=== PATIENT | female | born 1940 | race Caucasian/White ===

== ENCOUNTER 2017-01-17 18:29 | Observation (INO) | payer OTHER, MEDICAID ==
--- NOTE | 2017-01-17 22:01 | DR.GENAD ---
HPI - PCP Primary Care Physician: lupe Aranda HPI Comment HPI Comment: PATIENT DENIES DIARRHEA OR CONSTIPATION. DENIES FEVER OR DYSURIA. PAIN GETTING WORSE. CONCERN IF GB PAIN. - Complaint/Symptoms Chief Complaint Doctors Comments: ABDOMINAL PAIN, NAUSEA AND VOMITING TIMES 2 WEEKS. Chief Complaint:: pt c/o abd pain and vomiting for the last 2 weeks. pt states" i think its my gallbladder" - Nurses notes reviewed Nurses Notes Review: Yes - Source History Provided: Patient - Mode of Arrival Mode of Arrival: Ambulatory - Timing Onset of Chief Complaint: 01/04/17 Came on: Suddenly - Duration Duration: Constant Duration: Hours - Severity Severity: Moderate PMH - PMH Past Medical History: No Past Surgical History: Yes Surgical History: - Family History History of Family Medical Conditions: Yes Family Medical History: Cancer - Social History Does any household member use tobacco: No Alcohol Use: None Do you use any recreational Drugs:: No Lives With: Family Lives Where: Home - infectious screening In the last 2 months have you had wt loss of >10#?: NO Have you had fever, night sweats or hemotysis?: No Have you traveled outside the country in the last 6 months?: No Isolation: Standard ROS - Review of Systems Constitutional: No Symptoms Reported. negative: Chills, Fever, Weakness, Fatigue, Loss of Appetite Eyes: No Symptoms Reported. negative: Eye Pain, Discharge ENTM: No Symptoms Reported. negative: Ear Pain, Nose Discharge, Nose Congestion , Throat Pain Respiratoy: No Symptoms Reported. negative: Productive Cough, Non-Productive Cough, Short of Breath, Wheezing, Hemoptysis Cardiovascular: negative: Chest Pain, Edema, Palpitations Gastrointestinal/Abdominal: Abdominal Pain, Nausea. negative: Constipation, Diarrhea, Vomiting Genitourinary: No Symptoms Reported. negative: Dysuria, Frequency, Hematuria Neurological: No Symptoms Reported. negative: Headache, Weakness, Dizziness Musculoskeletal: No Symptoms Reported Integumentary: No Symptoms Reported Hematologic/Lymphatic: No Symptoms Reported Endocrine: No Symptoms Reported All Other Systems: Reviewed and Negative PE - Vital Signs Vitals: Temperature 98.3 F Pulse Rate 82 Respiratory Rate 18 Blood Pressure [Left Arm] 149/68 Blood Pressure 157/77 O2 Sat by Pulse Oximetry 98 - General Limitations: No Limitations General Appearance: Alert - Head Head Exam: Normal Inspection - Eyes Eye exam: Normal Appearance - ENT ENT Exam: Normal External Ear Exam External Ear Exam: Normal External Inspection TM/Canal Exam: Bilateral Normal Nose Exam: Normal Nose Exam Mouth Exam: Normal Inspection Throat Exam: Normal Inspection - Neck Neck Exam: Normal Inspection - Chest Chest Inspection: Symmetric Chest Wall Rise - Respiratory Respiratory Exam: Normal Lung Sounds Bilat Respiratory Exam: Bilateral Clear to Auscultation - Cardiovascular Cardiovascular Exam: Regular Rate, Normal Rhythm, Normal Heart Sounds - Abdominal Exam Abdominal Exam: Normal Bowel Sounds, Soft, Tenderness Abdominal Tenderness: Diffuse, Moderate - Extremities Extremities Exam: Normal Inspection - Back Back Exam: Normal Inspection - Neurologic Neurological Exam: Alert, Oriented X3, CN II-XII Intact, Normal Gait, Reflexes Normal. negative: Motor Sensory Deficit - Psychiatric Psychiatric Exam: Normal Affect, Normal Mood, Anxious - Skin Skin Exam: Normal Color MDM - Additional Information Additional Information Obtained From: Family - Differential Diagnosis Differential Diagnosis: ABDOMINAL PAIN, NAUSEA, CHOLELITHIASIS/CHOLICYSTITIS, BOWEL OBST, DIVERTICI Course - Treatment Treatment: SEE ORDERS - Consultation Consultation Comments: DISCUSS PATIENT WITH DR. THORNTON, HE WILL ADMIT PATIENT. CT REPORT CALL TO DR. SHELTON. HE WILL DISCUSS IT WITH PATIENT. - Education/Counseling Education/Counseling: Patient, Family, Education Educated On: Diagnosis, Needs for Follow Up ROR - Labs Reviewed Laboratory Results Reviewed?: Yes Result Diagrams: 01/18/17 05:20 01/18/17 05:20 Laboratory: WBC 4.9 X10^3/uL (3.6-10.0) 01/17/17 22:09 RBC 4.56 X10^6/uL (3.5-5.4) 01/17/17 22:09 Hgb 12.1 g/dL (12.0-16.0) 01/17/17 22:09 Hct 36.0 % (36.0-47.0) 01/17/17 22:09 MCV 78.8 fL (80.0-100.0) L 01/17/17 22:09 MCH 26.6 pg (27.0-34.0) L 01/17/17 22:09 MCHC 33.7 g/dL (33.0-35.0) 01/17/17 22:09 RDW 14.3 % (11.6-16.5) 01/17/17 22:09 Plt Count 201 X10^3/uL (150.0-450.0) 01/17/17 22:09 MPV 7.6 fL (7.4-11.0) 01/17/17 22:09 Neut % 77.9 % (42.0-75.0) H 01/17/17 22:09 Lymph % 14.0 % (21.0-51.0) L 01/17/17 22:09 [place] % 6.5 % (0.0-13.0) 01/17/17 22:09 Eos % 1.2 % (0.9-2.9) 01/17/17 22:09 Baso % 0.4 % (0.2-1.0) 01/17/17 22:09 Neut # 3.8 x10^3/uL (2.2-4.8) 01/17/17 22:09 Lymph # 0.7 X10^3/uL (1.3-2.9) L 01/17/17 22:09 [place] # 0.3 x10^3/uL (0.3-0.8) 01/17/17 22:09 Eos # 0.1 x10^3/uL (0.0-0.2) 01/17/17 22:09 Baso # 0.0 X10^3/uL (0.0-0.1) 01/17/17 22:09 Absolute Nucleated RBC 0.1 /100WBC 01/17/17 22:09 Sodium 139 mmol/L (136-145) 01/17/17 22:09 Corrected Sodium 140 mmol/L (136-145) 01/17/17 22:09 Potassium 3.3 mmol/L (3.5-5.1) L 01/17/17 22:09 Chloride 105 mmol/L (98-107) 01/17/17 22:09 Carbon Dioxide 27.4 mmol/L (21-32) 01/17/17 22:09 BUN 15 mg/dL (7-18) 01/17/17 22:09 Creatinine 0.82 mg/dL (0.55-1.02) 01/17/17 22:09 Est GFR (MDRD) Af Amer > 60 (>60) 01/17/17 22:09 Est GFR (MDRD) Non-Af > 60 (>60) 01/17/17 22:09 Glucose 148 mg/dL (65-99) H 01/17/17 22:09 Calcium 9.0 mg/dL (8.5-10.1) 01/17/17 22:09 Corrected Calcium TNP 01/17/17 22:09 Total Bilirubin 0.90 mg/dL (0.2-1.0) 01/17/17 22:09 AST 20 Units/L (15-37) 01/17/17 22:09 ALT 28 Units/L (12-78) 01/17/17 22:09 Alkaline Phosphatase 100 Units/L (46-116) 01/17/17 22:09 Total Protein 7.4 g/dL (6.4-8.2) 01/17/17 22:09 Albumin 3.7 g/dL (3.4-5.0) 01/17/17 22:09 Globulin 3.7 g/dL (2.5-4.5) 01/17/17 22:09 Albumin/Globulin Ratio 1.0 Ratio (1.1-2.1) L 01/17/17 22:09 Amylase 13 Units/L (25-115) L 01/17/17 22:09 Lipase 42 Units/L (73-393) L 01/17/17 22:09 Specimen Type Clean catch urine 01/17/17 22:28 Urine Color Dark yellow (YELLOW) 01/17/17 22:28 Urine Appearance Hazy (CLEAR) 01/17/17 22:28 Urine pH 5.0 (5.0 - 8.0) 01/17/17 22:28 Ur Specific Ray 1.025 (1.000-1.030) 01/17/17 22:28 Urine Protein 2+ (NEGATIVE) 01/17/17 22:28 Urine Glucose (UA) Negative (NEGATIVE) 01/17/17 22:28 Urine Ketones Negative (NEGATIVE) 01/17/17 22:28 Urine Occult Blood 3+ (NEGATIVE) 01/17/17 22: Urine Nitrite Negative (NEGATIVE) 01/17/17 22: Urine Bilirubin Negative (NEGATIVE) 01/17/17 22: Urine Urobilinogen 1+ (NORMAL) 01/17/17 22: Ur Leukocyte Esterase 3+ (NEGATIVE) 01/17/17 22:28 Urine RBC 10-12 /HPF (NEGATIVE) 01/17/17 22:28 Urine WBC 16-20 /HPF (NEGATIVE) 01/17/17 22:28 Ur Squamous Epith Cells Few /HPF (NEGATIVE) 01/17/17 22:28 Ur Renal Epithelial Cell Rare /HPF (NEGATIVE) 01/17/17 22:28 Urine Bacteria Trace /HPF (NEGATIVE) 01/17/17 22:28 Hyaline Casts Few /LPF (NEGATIVE) 01/17/17 22:28 Urine Mucus Few /HPF (NEGATIVE) 01/17/17 22:28 Ur Culture Indicated? Yes/culture set up 01/17/17 22:28 - XRAY XRAY Interpreted by: Radiologist XRAY Findings: REPORT OF XRAY DISCUSS WITH PATIENT AND FAMILY. - Diagnosis Discharge Problem: Partial bowel obstruction, Lytic lesion of bone on x-ray, Neoplasm of sigmoid colon - Discharge Plan Disposition: ADMITTED INPATIENT Condition: Stable - Follow ups/Referrals - Instructions
[2017-01-17 22:13] LABS: BASOPHILS % (AUTO) 0.4 % (0.2-1.0); EOSINOPHILS # (AUTO) 0.1 x10^3/uL (0.0-0.2); EOSINOPHILS % (AUTO) 1.2 % (0.9-2.9); HEMOGLOBIN 12.1 g/dL (12.0-16.0); LYMPHOCYTES # (AUTO) 0.7 X10^3/uL (1.3-2.9); MEAN CORPUSCULAR HEMOGLOBIN 26.6 pg (27.0-34.0); MEAN CORPUSCULAR HGB CONC 33.7 g/dL (33.0-35.0); MEAN CORPUSCULAR VOLUME 78.8 fL (80.0-100.0); MEAN PLATELET VOLUME 7.6 fL (7.4-11.0); MONOCYTES # (AUTO) 0.3 x10^3/uL (0.3-0.8); MONOCYTES % (AUTO) 6.5 % (0.0-13.0); NEUTROPHILS # (AUTO) 3.8 x10^3/uL (2.2-4.8); NEUTROPHILS % (AUTO) 77.9 % (42.0-75.0); PLATELET COUNT 201 X10^3/uL (150.0-450.0); RED BLOOD COUNT 4.56 X10^6/uL (3.5-5.4); RED CELL DISTRIBUTION WIDTH 14.3 % (11.6-16.5); WHITE BLOOD COUNT 4.9 X10^3/uL (3.6-10.0)
[2017-01-17 22:31] LABS: ALANINE AMINOTRANSFERASE 28 Units/L (12-78); ALBUMIN 3.7 g/dL (3.4-5.0); ALKALINE PHOSPHATASE 100 Units/L (46-116); AMYLASE 13 Units/L (25-115); ASPARTATE AMINO TRANSFERASE 20 Units/L (15-37); BLOOD UREA NITROGEN 15 mg/dL (7-18); CARBON DIOXIDE 27.4 mmol/L (21-32); CHLORIDE 105 mmol/L (98-107); COR NA(FOR HYPERGLY) 140 mmol/L (136-145); CREATININE 0.82 mg/dL (0.55-1.02); GLUCOSE 148 mg/dL (65-99); LIPASE 42 Units/L (73-393); SODIUM 139 mmol/L (136-145); TOTAL PROTEIN 7.4 g/dL (6.4-8.2); eGFR BLACK RACES > 60 (>60); eGFR NON BLACK RACES > 60 (>60)
[2017-01-17 22:38] LABS: BILIRUBIN,URINE NEGATIVE (NEGATIVE); BLOOD/HEMOGLOBIN,URINE 3+ (NEGATIVE); GLUCOSE, URINE NEGATIVE (NEGATIVE); KETONES,URINE NEGATIVE (NEGATIVE); LEUKOCYTE ESTERASE ,URINE 3+ (NEGATIVE); NITRITES,URINE NEGATIVE (NEGATIVE); PROTEIN,URINE 2+ (NEGATIVE); UROBILINOGEN,URINE 1+ (NORMAL)
[2017-01-17 22:57] LABS: COLOR,URINE DARK YELLOW (YELLOW)
[2017-01-17 22:58] LABS: APPEARANCE,URINE HAZY (CLEAR); BACTERIA,URINE TRACE /HPF (NEGATIVE); HYALINE CASTS, URINE FEW /LPF (NEGATIVE); MUCUS,URINE FEW /HPF (NEGATIVE); RENAL EPITHELIAL CELLS,URINE RARE /HPF (NEGATIVE); SQUAMOUS EPITHELIAL CELL,UR FEW /HPF (NEGATIVE)
--- NOTE | 2017-01-18 00:42 | RAD ---
EXAM: Abdomen Series with Chest X-Ray INDICATION: Abdominal pain COMPARISION: No priors TECHNIQUE: AP chest, flat and upright abdomen, 3 views FINDINGS: Chronic changes are seen throughout both lungs consistent with COPD. The cardiac silhouette and medi astinum appear unremarkable. Air-fluid levels are seen throughout mildly distended small bowel loops . The large bowel is nondilated. The regional skeleton is intact. No abnormal mass or calcification. IMPRESSION: Dilated loops of small bowel are seen throughout the abdomen and there are air-fluid levels present consistent with a small bowel obstruction. Reported By:
[2017-01-18] MEDS ORDERED: NS 1000 ML 1,000 ML IV SCH (01:00)
[2017-01-18] MEDS ORDERED: NS 1000 ML 1,000 ML ONE (01:11)
[2017-01-18] MEDS ORDERED: NS 100 ML IV 100 ML IV ONE (03:39)
--- NOTE | 2017-01-18 04:18 | CT ---
EXAM: CT ABDOMEN AND PELVIS WITH CONTRAST INDICATION: Abdominal pain COMPARISION: No priors available for comparison TECHNIQUE: Axial CT examination of the abdomen and pelvis was performed with intravenous contrast. The patient received intravenous contrast without adverse reaction. Coronal and sagittal reconstructions were c reated using the axial data. FINDINGS: The lung bases are clear. The liver and both kidneys contain cysts. The spleen, pancreas, adrenal gl ands, and gallbladder are normal. There is no evidence of biliary ductal dilatation. The aorta and i nferior vena cava are normal in caliber. The bowel loops are nonobstructed. No abnormal mass, lymphadenopathy, or fluid collection. Urinary bladder is normal. There is focal wall thickening which appears concentric involving the si gmoid colon in the left hemipelvis. The wall thickening is 2.6 cm in length. Proximal to the wall th ickening is dilatation of the splenic flexure and descending colon. The uterus and adnexa appear unr emarkable. T there is a poorly defined lucent lesion in the superior aspect of the L3 vertebral body which quique ures approximately 2 cm in diameter. IMPRESSION: There is a 2.6 cm long region of concentric wall thickening involving the sigmoid colon with proxima l large bowel dilatation which could represent a partial obstruction. A malignant lesion of the sigm oid colon is suspected and further evaluation is recommended. The lucent lesion in the L3 vertebral body could represent a malignant metastatic disease or primary bone tumor. MRI of the lumbar spine c ould be obtained for further evaluation. A whole-body bone scan may also be helpful in evaluating th e entire skeleton. Reported By:
[2017-01-18] MEDS ORDERED: ZOFRAN INJ 4 MG VIAL IVP PRN (04:48)
[2017-01-18] MEDS ORDERED: MORPHINE SULFATE INJ 2 MG IVP PRN (04:50)
[2017-01-18] MEDS ORDERED: ROCEPHIN 1 GM IV PREMIX * OUT OF STOCK 50 ML IV ONE (05:06)
[2017-01-18 05:46] VITALS: BMI 27.1
[2017-01-18] MEDS: NS 1000 ML 1,000 ML IV SCH ×2 (06:29→17:05)
[2017-01-18 06:44] LABS: ALANINE AMINOTRANSFERASE 71 Units/L (12-78); ALBUMIN 3.9 g/dL (3.4-5.0); ALKALINE PHOSPHATASE 144 Units/L (46-116); ASPARTATE AMINO TRANSFERASE 95 Units/L (15-37); BLOOD UREA NITROGEN 13 mg/dL (7-18); CALCIUM 9.1 mg/dL (8.5-10.1); CARBON DIOXIDE 27.8 mmol/L (21-32); CHLORIDE 102 mmol/L (98-107); COR NA(FOR HYPERGLY) 139 mmol/L (136-145); CREATININE 0.72 mg/dL (0.55-1.02); GLUCOSE 129 mg/dL (65-99); SODIUM 138 mmol/L (136-145); TOTAL PROTEIN 7.5 g/dL (6.4-8.2); eGFR BLACK RACES > 60 (>60); eGFR NON BLACK RACES > 60 (>60)
[2017-01-18 07:10] LABS: BASOPHILS % (AUTO) 0.3 % (0.2-1.0); EOSINOPHILS # (AUTO) 0.1 x10^3/uL (0.0-0.2); EOSINOPHILS % (AUTO) 1.3 % (0.9-2.9); HEMATOCRIT 38.7 % (36.0-47.0); HEMOGLOBIN 13.1 g/dL (12.0-16.0); LYMPHOCYTES # (AUTO) 0.7 X10^3/uL (1.3-2.9); LYMPHOCYTES % (AUTO) 12.4 % (21.0-51.0); MEAN CORPUSCULAR HEMOGLOBIN 26.6 pg (27.0-34.0); MEAN CORPUSCULAR HGB CONC 33.8 g/dL (33.0-35.0); MEAN CORPUSCULAR VOLUME 78.8 fL (80.0-100.0); MEAN PLATELET VOLUME 8.5 fL (7.4-11.0); MONOCYTES # (AUTO) 0.3 x10^3/uL (0.3-0.8); MONOCYTES % (AUTO) 4.9 % (0.0-13.0); NEUTROPHILS # (AUTO) 4.7 x10^3/uL (2.2-4.8); NEUTROPHILS % (AUTO) 81.1 % (42.0-75.0); PLATELET COUNT 204 X10^3/uL (150.0-450.0); RED BLOOD COUNT 4.91 X10^6/uL (3.5-5.4); WHITE BLOOD COUNT 5.8 X10^3/uL (3.6-10.0)
[2017-01-18] MEDS: ROCEPHIN VIAL 1 GM 1 GM in NS 50 ML IV + SPIKE MINIBAG* 50 ML IV SCH (09:22)
[2017-01-18] MEDS: PEPCID 20 MG IV PREMIX* 20 MG/50 ML BAG IV SCH ×2 (09:22→20:42)
[2017-01-18] MEDS ORDERED: COLACE CAP 100 MG PO STA (10:18)
[2017-01-18] MEDS ORDERED: CITROMA PO ONE (10:18)
[2017-01-19] MEDS: NS 1000 ML 1,000 ML IV SCH ×2 (05:34→11:58)
[2017-01-19] MEDS: ROCEPHIN VIAL 1 GM 1 GM in NS 50 ML IV + SPIKE MINIBAG* 50 ML IV SCH (09:10)
[2017-01-19] MEDS: PEPCID 20 MG IV PREMIX* 20 MG/50 ML BAG IV SCH (09:11)
[2017-01-19] MEDS ORDERED: DIPRIVAN VIAL 10 ML ONE ×3 (11:53→12:07)
[2017-01-19 18:28] VITALS: BP 119/57
== END 2017-01-19 16:10 | disposition home or self-care (01) ==
LOC: ER 18:50 → MED/SURG 01-18 04:40
PROVIDERS: ADMIT Internal Medicine; ATTEND Obstetrics & Gynecology Obstetrics
PROC: 0DBH8ZX Excision of Cecum, Via Natural or Artificial Opening Endoscopic, Diagnostic (ICD-10-PCS; principal; 2017-01-19 16:15)
DX: K56.69 Other intestinal obstruction (principal); N39.0 Urinary tract infection, site not specified; M89.8X8 Other specified disorders of bone, other site; K63.3 Ulcer of intestine; R10.13 Epigastric pain; R93.5 Abnormal findings on diagnostic imaging of other abdominal regions, including retroperitoneum; Z79.1 Long term (current) use of non-steroidal anti-inflammatories (NSAID); K57.32 Diverticulitis of large intestine without perforation or abscess without bleeding; Z12.11 Encounter for screening for malignant neoplasm of colon; K64.8 Other hemorrhoids; M89.9 Disorder of bone, unspecified
CPT/HCPCS: 36415; 74022; 74177; 80053; 81001; 82150; 83690; 85025; 87086; 96365; 96367; 96374; 99284; A4222; S0028; A4217; G0378; J0696; J3490

== ENCOUNTER → 2017-02-09 | Outpatient (CLI) | payer OTHER, MEDICAID ==
[2017-01-19 18:28] VITALS: BP 119/57
--- NOTE | 2017-02-09 11:45 | NM ---
HISTORY: Malabsorption, abdominal pain Study: Nuclear medicine HIDA scan with ejection fraction Comparison: None Technique: Multiple scintigraphic images of the abdomen were obtained the intravenous administration of 5.5 mCi of technetium labeled Choletec. Following distention of the gallbladder with radiotracer the patient received a fatty meal. An estim ated gallbladder ejection fraction was calculated based on the physiologic response of this infusion . Findings: Homogeneous uptake of radiotracer is seen throughout the liver. This intrabiliary ductal system is observed normally. The common hepatic and common bile duct grossly appear unremarkable with normal biliary-bowel transit. The gallbladder is observed to fill normally. After the fatty meal a normal gallbladder ejection fraction of 45.2% (normal > 35%) is observed. IMPRESSION: 1. Normal hepatobiliary imaging scan. 2. Normal gallbladder ejection fraction 45.2% Reported By:
== END ==
LOC: RAD 08:53
PROVIDERS: ATTEND Nurse Practitioner Family
DX: K90.49 Malabsorption due to intolerance, not elsewhere classified (principal); R10.84 Generalized abdominal pain
CPT/HCPCS: 78227

== ENCOUNTER 2017-04-15 08:27 | Emergency (ER) | payer OTHER, MEDICAID ==
[2017-04-15 08:33] VITALS: BP 140/53
[2017-04-15] MEDS ORDERED: DECADRON INJ IM ONE (09:11)
[2017-04-15] MEDS ORDERED: TORADOL 60 MG VIAL IM ONE (09:11)
[2017-04-15] MEDS ORDERED: DECADRON INJ ONE (09:14)
[2017-04-15] MEDS ORDERED: TORADOL 60 MG VIAL ONE (09:15)
--- NOTE | 2017-04-15 09:17 | DR.GENAD ---
HPI - PCP Primary Care Physician: SHAILESH - Complaint/Symptoms Chief Complaint Doctors Comments: Patient complains of right hip pain with the pain going down her right leg for the past 2 1/2 days with the pain getting worst tonight. States the pain is 10 of 10 and she has been unable to walk to day. She denies any recent trauma. She denies lower back pain. States she has been seeing Dr. Berkowitz and he has been treating her for arthritis with Joseph. States he told her she did not need surgery. She is a patient of Jennifer Cash. She denies numbness or tingling. She denies problems with her balance. Chief Complaint:: PT C/O RT HIP PAIN RADIATING DOWN RT LEG. PT STATES SHE TWISTED THE WRONG WAY 2 DAYS AGO. PT STATES SHE IS HAVING TROUBLE WALKING - Nurses notes reviewed Nurses Notes Review: Yes - Source History Provided: Patient - Mode of Arrival Mode of Arrival: Ambulatory - Timing Onset of Chief Complaint: 04/13/17 Came on: Gradually - Duration Duration: Constant How lon Duration: Days - Location Location: right hip pain - Severity Severity: Severe - Modifying Factors Worsens:: walking and movement Improves:: nothing PMH - PMH Past Medical History: No Past Surgical History: Yes Surgical History: - Family History History of Family Medical Conditions: Yes Family Medical History: Cancer - Social History Does any household member use tobacco: No Alcohol Use: None Do you use any recreational Drugs:: No Lives With: Family Lives Where: Home - infectious screening In the last 2 months have you had wt loss of >10#?: NO Have you had fever, night sweats or hemotysis?: No Have you traveled outside the country in the last 6 months?: No Isolation: Standard ROS - Review of Systems Constitutional: No Symptoms Reported. negative: See HPI, Chills, Diaphoresis, Fever, Malaise, Weakness, Irritable, Fatigue, Loss of Appetite, Other Eyes: No Symptoms Reported ENTM: No Symptoms Reported. negative: See HPI, Ear Pain, Ear Discharge, Pulling on Ears, Hearing Loss, Nose Pain, Nose Discharge, Epistaxis, Nose Congestion, Mouth Pain, Mouth Swelling, Loose Teeth, Drooling, Throat Pain, Throat Swelling, Ear Foreign Body Respiratoy: No Symptoms Reported Cardiovascular: No Symptoms Reported Gastrointestinal/Abdominal: No Symptoms Reported. negative: See HPI, Abdominal Pain, Constipation, Diarrhea, Nausea, Vomiting, Food Intolerance, Other Genitourinary: No Symptoms Reported. negative: See HPI, Discharge, Dysuria, Frequency, Hematuria, Pain, Bleeding, Other Neurological: No Symptoms Reported, Problems Walking (right hip pain). negative : See HPI, Anxiety, Depressed, Emotional Problems, Headache, Numbness, Paresthesia, Pre-existing Deficit, Seizure, Tingling, Tremors, Weakness, Dizziness, Speech Problem, Other Musculoskeletal: No Symptoms Reported, Right, Hip Integumentary: No Symptoms Reported. negative: See HPI, Change in Color, Change in Hair/Nails, Dryness, Lesions, Lumps, Rash, Itching, Wound, Bruises, Juandice, Other Hematologic/Lymphatic: No Symptoms Reported Endocrine: No Symptoms Reported. negative: See HPI, Excessive Sweating, Flushing, Intolerance to Cold, Intolerance to Heat, Increased Hunger, Increased Thirst, Increased Urine, Unexplained Weight Gain, Unexplained Weight Loss, Failure to Thrive, Decreased Appetite, Other Psychiatric: No Symptoms Reported. negative: See HPI, Anxiety, Depression, Hallucinations, Excessive crying, Suicidal, Other PE - Vital Signs Vitals: Temperature 98.1 F Pulse Rate 81 Respiratory Rate 20 Blood Pressure [Right Arm] 119/57 Blood Pressure [Left Arm] 117/56 Blood Pressure 140/53 O2 Sat by Pulse Oximetry 100 - General Limitations: No Limitations General Appearance: Alert, In Distress (moderate) - Head Head Exam: Normal Inspection, Atraumatic, Normocephalic - Eyes Eye exam: Normal Appearance, PERRL, EOMI. negative: Scleral Icterus, Conjunctival Injection, Nystagmus, Miosis, Mydrasis, Periorbital Swelling, Periorbital Tenderness, Other - ENT ENT Exam: Normal Exam, Normal Oropharynx, Normal External Ear Exam, Mucous Membranes Moist, TM's Normal Bilaterally External Ear Exam: Normal External Inspection TM/Canal Exam: Bilateral Normal Nose Exam: Normal Nose Exam Mouth Exam: Normal Inspection. negative: Drooling, Trismus, Lip Swelling, Tongue Elevation, Tongue Swelling, Laceration, Other Throat Exam: Normal Inspection. negative: Tonsillar Erythema, Tonsillomegaly, Tonsillar Exudate, R Peritonsillar Mass, L Peritonsillar Mass, Muffled Voice, Other - Neck Neck Exam: Normal Inspection, Full ROM, Trachea Midline. negative: Tenderness, Meningismus, Lymphadenopathy, Thyromegaly, Other - Chest Chest Inspection: Normal Inspection, Symmetric Chest Wall Rise - Respiratory Respiratory Exam: Normal Lung Sounds Bilat Respiratory Exam: Bilateral Clear to Auscultation - Cardiovascular Cardiovascular Exam: Regular Rate, Normal Rhythm, Normal Heart Sounds. negative : Bradycardia, Tachycardia, Irregular Rhythm, Systolic Murmur, Diastolic Murmur , Rubs, Gallop, Clicks, JVD, +S1, +S2, +S3, +S4, Other - Abdominal Exam Abdominal Exam: Normal Inspection, Normal Bowel Sounds, Soft. negative: Distention, Tenderness, Guarding, Rebound, Rigidity, Dimnished Bowel Sounds, Hyperactive Bowel Sounds, Hypoactive Bowel Sounds, Organomegaly, Trauma, Incision, Ascites, Mass, Bruit, Pulsatile Mass, Hernia, Other Abdominal Tenderness: negative: RUQ, RLQ, LUQ, LLQ, Epigastrium, Suprapubic, Diffuse, Mild, Moderate, Severe, Other - Extremities Extremities Exam: Normal Inspection, Full ROM, Tenderness (right hip tender on palpation), Normal Capillary Refill. negative: Edema, Joint Swelling, Calf Tenderness, Other - Back Back Exam: Normal Inspection, Full ROM. negative: Tenderness, (R) CVA Tenderness, (L) CVA Tenderness, Muscle Spasm, Paraspinal Tenderness, Vertebral Tenderness, Rashes, (R) Sciatic Notch Tenderness, (L) Sciatic Notch Tendern, (R ) Straight Leg Raise, (L) Straight Leg Raise, Other - Neurologic Neurological Exam: Alert, Oriented X3, CN II-XII Intact, Reflexes Normal. negative: Normal Gait (gait not tested) - Psychiatric Psychiatric Exam: Normal Affect, Normal Mood. negative: Depressed, Agitated, Anxious, Flat Affect, Manic, Homicidal Ideation, Suicidal Ideation, Other - Skin Skin Exam: Warm, Dry, Intact, Normal Color. negative: Rash, Cyanosis, Diaphoresis, Erythema, Pallor, Mottled, Other Course - Reevaluation 1st: Improved - Consultation Called: 10:21 Call Returned: 10:21 (Dr. Pham to admit) - Education/Counseling Education/Counseling: Patient, Family Educated On: Treatment, Diagnosis, Prognosis, Needs for Follow Up ROR - Labs Reviewed Laboratory Results Reviewed?: Yes (all x-ray results reviewed and discussed with patient and family) - XRAY XRAY Interpreted by: Radiologist (right hip: questionable nondisplaced and minimally impacted subcapital fracture of the right femoral neck) - Diagnosis Discharge Problem: Right hip pain, Degenerative arthritis of hip Fracture of femoral neck, right, closed Qualifiers: Encounter type: initial encounter Qualified Code(s): S72.001A - Fracture of unspecified part of neck of right femur, initial encounter for closed fracture - Discharge Plan Disposition: 09 ADMITTED INPATIENT Condition: Stable - Follow ups/Referrals Follow ups/Referrals: LAURA CASH [Primary Care Provider] - 3 days - Instructions
--- NOTE | 2017-04-15 09:58 | RAD ---
HISTORY: Right hip pain radiating down right leg with severe pain on ambulation. Study: AP views of the pelvis and right hip. Comparison: None. Findings: There is diffuse demineralization. There is a questionable nondisplaced and minimally impacted subcap ital fracture of the right femoral neck. There are mild to moderate degenerative changes of the right hip joint with joint space narrowing and subchondral sclerosis. The pelvic ring is grossly intact. T he left hip is grossly unremarkable. Impression: Diffuse demineralization with questionable nondisplaced and minimally impacted subcapital fracture of the right femoral neck. MR of the right hip is suggested for further evaluation. Reported By:
[2017-04-15] MEDS ORDERED: MORPHINE SULFATE INJ 2 MG INJ IVP PRN (10:31)
[2017-04-15 10:44] LABS: BASOPHILS % (AUTO) 0.1 % (0.2-1.0); EOSINOPHILS % (AUTO) 0.1 % (0.9-2.9); HEMATOCRIT 32.1 % (36.0-47.0); HEMOGLOBIN 11.2 g/dL (12.0-16.0); LYMPHOCYTES # (AUTO) 0.2 X10^3/uL (1.3-2.9); LYMPHOCYTES % (AUTO) 2.6 % (21.0-51.0); MEAN CORPUSCULAR HEMOGLOBIN 28.2 pg (27.0-34.0); MEAN CORPUSCULAR HGB CONC 34.9 g/dL (33.0-35.0); MEAN CORPUSCULAR VOLUME 80.8 fL (80.0-100.0); MEAN PLATELET VOLUME 7.6 fL (7.4-11.0); MONOCYTES # (AUTO) 0.3 x10^3/uL (0.3-0.8); MONOCYTES % (AUTO) 3.7 % (0.0-13.0); NEUTROPHILS # (AUTO) 7.7 x10^3/uL (2.2-4.8); NEUTROPHILS % (AUTO) 93.5 % (42.0-75.0); PLATELET COUNT 176 X10^3/uL (150.0-450.0); RED BLOOD COUNT 3.97 X10^6/uL (3.5-5.4); RED CELL DISTRIBUTION WIDTH 17.2 % (11.6-16.5); WHITE BLOOD COUNT 8.3 X10^3/uL (3.6-10.0)
[2017-04-15] MEDS ORDERED: MORPHINE SULFATE INJ 2 MG INJ ONE (10:58)
[2017-04-15] MEDS ORDERED: NS 1000 ML 1,000 ML IV SCH (11:00)
[2017-04-15] MEDS ORDERED: PROTONIX INJ 40 MG VIAL IVP SCH (11:00)
[2017-04-15 11:01] LABS: BLOOD UREA NITROGEN 21 mg/dL (7-18); CARBON DIOXIDE 28.4 mmol/L (21-32); CHLORIDE 101 mmol/L (98-107); COR NA(FOR HYPERGLY) 139 mmol/L (136-145); CREATININE 0.96 mg/dL (0.55-1.02); SODIUM 137 mmol/L (136-145); TROPONIN I < 0.02 ng/mL (0-1.5); eGFR BLACK RACES > 60 (>60); eGFR NON BLACK RACES > 60 (>60)
[2017-04-15 11:05] LABS: ALANINE AMINOTRANSFERASE 30 Units/L (12-78); ALBUMIN 3.2 g/dL (3.4-5.0); ALKALINE PHOSPHATASE 100 Units/L (46-116); ASPARTATE AMINO TRANSFERASE 30 Units/L (15-37); COR CA(FOR HYPOALB) 9.6 mg/dL (8.5-10.1); CREATINE KINASE 58 Units/L (26-192); CREATINE KINASE MB < 1.0 ng/mL (0-4.0); MAGNESIUM 1.6 mg/dL (1.7-2.9); TOTAL PROTEIN 6.6 g/dL (6.4-8.2)
[2017-04-15 11:09] LABS: CKMB % 1.7 % (<4)
[2017-04-15] MEDS ORDERED: NS 1000 ML 1,000 ML ONE (11:10)
[2017-04-15 11:15] LABS: BAND NEUTROPHILS % 1 % (0-10)
[2017-04-15 11:16] LABS: PLATELET MORPHOLOGY COMMENT NORMAL (NORMAL)
[2017-04-15] MEDS ORDERED: D5 LR 1000 ML 1,000 ML IV ONE (11:42)
[2017-04-15] MEDS ORDERED: ANCEF VIAL 1 GM ONE (11:43)
[2017-04-15] MEDS ORDERED: NS 50 ML IV + SPIKE MINIBAG* 50 ML IV ONE (11:43)
[2017-04-15] MEDS ORDERED: XYLOCAINE 1% and EPINEPHRINE 1:100,000 ONE (11:43)
[2017-04-15] MEDS ORDERED: MARCAINE 0.25% INJ ONE (11:43)
[2017-04-15] MEDS ORDERED: PROTONIX INJ 40 MG VIAL ONE (11:46)
[2017-04-15] MEDS ORDERED: BACTROBAN OINT ONE (12:44)
--- NOTE | 2017-04-15 15:52 | MRI ---
MRI right hip without contrast Indication: Right hip pain, chronic no reported injury Technique: Multiplanar, multi sequence imaging of the right hip without IV contrast administration. Findings: The there is heterogeneous bone marrow signal throughout the pelvis and hip. There is moderate osteoa rthrosis of the right femoral acetabular joint evidenced by subcortical cyst formation of the femoral head along with diffuse chondral thinning and chondromalacia. There is degenerative signal within th e anterior and superior labrum however no acute labral tear identified. The femoral head demonstrates normal convexity without evidence of osteonecrosis or subchondral collapse. There is no femoral neck marrow edema to suggest insufficiency fracture. There is a small hip joint effusion noted. There is mild degenerative change noted within the visualized left hip. There is mild edema within the proximal gluteus minimus muscle belly. There is moderate edema within the adductor longus, brevis and alvin muscles at their proximal attachment. There is heterogeneous S TIR and increased T1 signal along the inferior margin of the hip joint which likely represents hemato ma tear of the piriformis muscle . The ileus psoas tendon is intact. Visualize hamstring tendons are intact as well. Impression: 1.Moderate osteoarthrosis of the right femoral acetabular joint with degenerative fraying , tearing o f the anterior and superior acetabular labrum. No definite acute labral tear or paralabral cyst. Smal l hip joint effusion is likely reactive to the osteoarthrosis. There is no fracture of the proximal f emur, subchondral collapse or osteonecrosis. 2. There is heterogeneous rounded area of abnormal signal with peripheral decreased T2 signal at the approximate location of the piriformis muscle belly suspected to represent a subacute hematoma/sequel a of previous piriformis muscle tear. 3. Moderate strains of the adductor longus , brevis and alvin muscles . 4. Mild strain of the proximal gluteus minimus muscle. The Reported By:
[2017-04-15 15:54] VITALS: BMI 3796.2
--- NOTE | 2017-04-15 16:03 | RAD ---
HISTORY: Chest pain Study: AP chest. Comparison: 01/18/2017 Findings: Lungs are hypo aerated but appear grossly clear. There are no pleural effusions. The antonio and cardiomediastinal silhouette appear normal. IMPRESSION: 1. No radiographic evidence of an acute cardiopulmonary process. Reported By:
[2017-04-15] MEDS ORDERED: NORCO 5/325 MG TAB ONE (16:20)
--- NOTE | 2017-04-17 16:05 | DR.CONSULT ---
Consult - Consultation for Day of: Date: 04/15/17 (Thanks for the consult) - Chief Complaint Chief Complaint: RT hip pain. - Allergies Allergies/Adverse Reactions: Allergies Allergy/AdvReac Type Severity Reaction Status Date / Time No Known Drug Allergies Allergy Verified 04/15/17 09:21 - History of Present Illness History of Present Illness: RT hip pain for few days now. difficulty in walking. no history of trauma/fall/excessive activity. RT hip pain-c sign. pain level 8-9. no fever/ constitutional symptoms. Has seen Dr. Lidia English for rt hip OA recently and he has changed her medications. Seen in ER- XR shows suspision for the rt hip sub capital fracture. - Past Surgical History Surgical History: - Family History Family Medical History: Diabetes Mellitus, Hypertension - Social History Does patient currently use any type of tobacco product: No Have you used tobacco products in the last 12 months: No Type of Tobacco Use: None Does any household member use tobacco: No Alcohol Use: None Drug Use: None - Physical Exam Vital Signs: Temperature 98.1 F Pulse Rate 81 Respiratory Rate 20 Blood Pressure [Right Arm] 119/57 Blood Pressure [Left Arm] 117/56 Blood Pressure 140/53 O2 Sat by Pulse Oximetry 100 Oriented: Normal Musculoskeletal: Right, Hip, Tender (ROM restricted. unable to do SLR. no NVD. ) - Plan Plan: MR rt hip - NO fracture/AVN/Stress fracture noted. Piriformis tendon and adductor muscle sprain. OA signs -discussed the findings with family. Natural history and treatment options disscussed. This should get better with conservative management. This is an aggrevation of OA and also some muscle sprain. advise-1.WB as tolerated with walker. 2. Pain management- Tylenol and [place]( Pt has gastric ulcer). 3. Heat/brace. 4. FU as advised in 2 weeks in office.
== END 2017-04-15 11:58 | disposition other institution (70) ==
LOC: ER 08:38 → UNDOADMIN 10:24 → MED/SURG 10:24 → UNDODISIN 11:58
DX: S73.191A Other sprain of right hip, initial encounter (principal); S76.211A Strain of adductor muscle, fascia and tendon of right thigh, initial encounter; R26.2 Difficulty in walking, not elsewhere classified; R07.9 Chest pain, unspecified; Y92.9 Unspecified place or not applicable; Y33.XXXA Other specified events, undetermined intent, initial encounter
CPT/HCPCS: 36415; 71010; 73501; 73721; 80053; 82550; 82553; 83735; 84484; 85025; 85610; 85730; 86850; 86900; 86901; 93005; 93010; 96365; 96372; 96374; 96375; 99284; A4222; C9113; S0020; J0690; J1100; J1885; J2001; J2270; J7120

== ENCOUNTER 2017-04-18 04:12 | Inpatient (IN) | payer OTHER, MEDICAID ==
[2017-04-18 04:27] VITALS: BMI 24.5
[2017-04-18] MEDS ORDERED: NS 1000 ML 1,000 ML ONE ×2 (04:34→05:35)
[2017-04-18] MEDS ORDERED: NS 1000 ML 1,000 ML IV ONE (04:35)
--- NOTE | 2017-04-18 04:38 | DR.GENAD ---
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 No definite acute labral tear or paralabral cyst. She had a small hip joint effusion. Suspected subacute hematoma/sequela of previous piriformis muscle tear. Moderate strains of the adductor longus, brevis and alvin muscles. There was mild strain of the proximal gluteus minimus muscle. Patient was seen by edmar Aguila, and was advised to follow today. Spouse of patient states that the hydrocodone is not working. Patient presents today for pain management ; he is to follow up with Dr Salmon today. Chief Complaint:: PATIENT REPORTS RIGHT HIP PAIN AND RIGHT THIGH PAIN. PATIENT WAS SEEN IN THE ER LAST MONDAY FOR SUSPECTED FRACTURE TO RIGHT HIP. XRAY WAS NEGATIVE FOR FRACTURE AND PATIENT WAS SENT HOME WITH ORAL PAIN MEDICATION AND MUSCLE RELAXER. PATIENT REPORTS INTRACTABLE PAIN WITH INABILITY TO AMBULATE. - Source History Provided: Patient, Family Member - Mode of Arrival Mode of Arrival: Wheelchair - Timing Onset of Chief Complaint: 04/15/17 PMH - PMH Past Medical History: No Past Surgical History: Yes Surgical History: - Family History History of Family Medical Conditions: Yes Family Medical History: Diabetes Mellitus, Hypertension - Social History Type of Tobacco Use: None Alcohol Use: None Do you use any recreational Drugs:: No Lives With: Spouse Lives Where: Home - infectious screening In the last 2 months have you had wt loss of >10#?: NO Have you had fever, night sweats or hemotysis?: No Have you traveled outside the country in the last 6 months?: No Isolation: Standard ROS - Review of Systems Eyes: No Symptoms Reported ENTM: No Symptoms Reported Respiratoy: No Symptoms Reported Cardiovascular: No Symptoms Reported Gastrointestinal/Abdominal: No Symptoms Reported Genitourinary: No Symptoms Reported Neurological: No Symptoms Reported Musculoskeletal: Muscle Pain, Hip Integumentary: No Symptoms Reported, See HPI Hematologic/Lymphatic: No Symptoms Reported Endocrine: No Symptoms Reported Psychiatric: No Symptoms Reported All Other Systems: Reviewed and Negative PE - Vital Signs Vitals: Temperature 97.7 F Pulse Rate [Apical] 143 Pulse Rate 173 Respiratory Rate 19 Blood Pressure [Right Arm] 119/57 Blood Pressure [Left Arm] 76/41 Blood Pressure 83/53 O2 Sat by Pulse Oximetry 99 - General Limitations: No Limitations General Appearance: Alert - Head Head Exam: Normal Inspection, Atraumatic - Eyes Eye exam: Normal Appearance, PERRL, EOMI - ENT ENT Exam: Normal Exam External Ear Exam: Normal External Inspection TM/Canal Exam: Bilateral Normal Nose Exam: Normal Nose Exam Mouth Exam: Normal Inspection Throat Exam: Normal Inspection - Neck Neck Exam: Normal Inspection, Full ROM - Chest Chest Inspection: Normal Inspection, Symmetric Chest Wall Rise - Respiratory Respiratory Exam: Normal Lung Sounds Bilat Respiratory Exam: Bilateral Clear to Auscultation - Cardiovascular Cardiovascular Exam: Regular Rate - Abdominal Exam Abdominal Exam: Normal Inspection Abdominal Tenderness: negative: RUQ, RLQ, LUQ, LLQ, Epigastrium, Suprapubic, Diffuse, Mild, Moderate, Severe, Other - Extremities Extremities Exam: Normal Inspection - Back Back Exam: Normal Inspection, Full ROM - Neurologic Neurological Exam: Alert, Oriented X3, CN II-XII Intact - Psychiatric Psychiatric Exam: Normal Affect - Skin Skin Exam: Warm, Dry, Intact Course - Treatment Treatment: Upon arrival patient was hypotensive started on NS bolus,pulse 173. Rate decreased but increased to 172. EKG revealed AFib with RVR. Patient starded on diltiazem drip per protocol, dopamine drip for hypotension - Consultation Called: 05:45 (Dr Pham advised to admit for further treatment and evaluation ) ROR - Labs Reviewed Result Diagrams: 04/18/17 05:30 04/18/17 05:30 Laboratory: WBC 0.7 X10^3/uL (3.6-10.0) L* D 04/18/17 05:30 RBC 3.51 X10^6/uL (3.5-5.4) 04/18/17 05:30 Hgb 9.9 g/dL (12.0-16.0) L 04/18/17 05:30 Hct 28.5 % (36.0-47.0) L 04/18/17 05:30 MCV 81.1 fL (80.0-100.0) 04/18/17 05:30 MCH 28.2 pg (27.0-34.0) 04/18/17 05:30 MCHC 34.8 g/dL (33.0-35.0) 04/18/17 05:30 RDW 17.1 % (11.6-16.5) H 04/18/17 05:30 Plt Count 48 X10^3/uL (150.0-450.0) L 04/18/17 05:30 Plt Count Comment Decreased (ADEQUATE) A 04/18/17 05:30 MPV 8.8 fL (7.4-11.0) 04/18/17 05:30 Neut % 87.2 % (42.0-75.0) H 04/18/17 05:30 Lymph % 10.4 % (21.0-51.0) L 04/18/17 05:30 Brown % 1.5 % (0.0-13.0) 04/18/17 05:30 Eos % 0.7 % (0.9-2.9) L 04/18/17 05:30 Baso % 0.2 % (0.2-1.0) 04/18/17 05:30 Neut # 0.7 x10^3/uL (2.2-4.8) L 04/18/17 05:30 Lymph # 0.1 X10^3/uL (1.3-2.9) L 04/18/17 05:30 Brown # 0 x10^3/uL (0.3-0.8) L 04/18/17 05:30 Eos # 0.0 x10^3/uL (0.0-0.2) 04/18/17 05:30 Baso # 0.0 X10^3/uL (0.0-0.1) 04/18/17 05:30 Absolute Nucleated RBC 0.3 /100WBC 04/18/17 05:30 Total Counted 50 04/18/17 05:30 Neutrophils % (Manual) 72 % (39-76) 04/18/17 05:30 Band Neutrophils % 18 % (0-10) H 04/18/17 05:30 Lymphocytes % (Manual) 8 % (13-43) L 04/18/17 05:30 Monocytes % (Manual) 2 % (4-9) L 04/18/17 05:30 Plt Morphology Comment Normal (NORMAL) 04/18/17 05:30 RBC Morphology Normal (NORMAL) 04/18/17 05:30 Sodium 135 mmol/L (136-145) L 04/18/17 05:30 Corrected Sodium TNP 04/18/17 05:30 Potassium 3.2 mmol/L (3.5-5.1) L 04/18/17 05:30 Chloride 100 mmol/L (98-107) 04/18/17 05:30 Carbon Dioxide 21.5 mmol/L (21-32) 04/18/17 05:30 BUN 64 mg/dL (7-18) H 04/18/17 05:30 Creatinine 2.62 mg/dL (0.55-1.02) H 04/18/17 05:30 Est GFR (MDRD) Af Amer 23 (>60) L 04/18/17 05:30 Est GFR (MDRD) Non-Af 19 (>60) L 04/18/17 05:30 Glucose 96 mg/dL (65-99) 04/18/17 05:30 Calcium 8.0 mg/dL (8.5-10.1) L 04/18/17 05:30 Corrected Calcium 9.5 mg/dL (8.5-10.1) 04/18/17 05:30 Total Bilirubin 2.30 mg/dL (0.2-1.0) H 04/18/17 05:30 AST 53 Units/L (15-37) H 04/18/17 05:30 ALT 41 Units/L (12-78) 04/18/17 05:30 Alkaline Phosphatase 151 Units/L (46-116) H 04/18/17 05:30 Total Protein 5.3 g/dL (6.4-8.2) L 04/18/17 05:30 Albumin 2.1 g/dL (3.4-5.0) L 04/18/17 05:30 Globulin 3.2 g/dL (2.5-4.5) 04/18/17 05:30 Albumin/Globulin Ratio 0.7 Ratio (1.1-2.1) L 04/18/17 05:30 - XRAY XRAY Interpreted by: Radiologist - Diagnosis Discharge Problem: Adductor longus strain-moderate, Strain of gluteus minimus muscle, Atrial fibrillation with RVR, Prerenal azotemia, Hypokalemia, Thrombocytopenia Osteoarthritis Qualifiers: Osteoarthritis location: hip Osteoarthritis type: primary Laterality: right Qualified Code(s): M16.11 - Unilateral primary osteoarthritis, right hip Leukopenia Qualifiers: Leukopenia type: neutropenia Neutropenia type: unspecified Qualified Code(s): D70.9 - Neutropenia, unspecified - Discharge Plan Condition: Stable - Follow ups/Referrals Follow ups/Referrals: BRITTANY BEE [Primary Care Provider] - 3 days - Instructions
[2017-04-18] MEDS ORDERED: DILAUDID INJ IVP ONE (04:41)
[2017-04-18] MEDS ORDERED: DILAUDID INJ ONE (04:42)
[2017-04-18] MEDS ORDERED: DOPAMINE IV ONE (05:14)
[2017-04-18] MEDS ORDERED: NS 100 ML IV 100 ML IV ONE (05:31)
[2017-04-18] MEDS ORDERED: CARDIZEM INJ 125 MG VIAL ONE (05:32)
[2017-04-18] MEDS ORDERED: CARDIZEM INJ 50 MG VIAL ONE (05:37)
[2017-04-18] MEDS ORDERED: CARDIZEM INJ 50 MG VIAL IVP ONE (05:37)
[2017-04-18] MEDS ORDERED: CARDIZEM INJ 125 MG VIAL 125 MG in NS 100 ML IV 100 ML IV PRN (05:38)
[2017-04-18 05:57] LABS: ALANINE AMINOTRANSFERASE 41 Units/L (12-78); ALBUMIN 2.1 g/dL (3.4-5.0); ALKALINE PHOSPHATASE 151 Units/L (46-116); ASPARTATE AMINO TRANSFERASE 53 Units/L (15-37); BASOPHILS % (AUTO) 0.2 % (0.2-1.0); BLOOD UREA NITROGEN 64 mg/dL (7-18); CARBON DIOXIDE 21.5 mmol/L (21-32); CHLORIDE 100 mmol/L (98-107); COR CA(FOR HYPOALB) 9.5 mg/dL (8.5-10.1); CREATININE 2.62 mg/dL (0.55-1.02); EOSINOPHILS % (AUTO) 0.7 % (0.9-2.9); HEMATOCRIT 28.5 % (36.0-47.0); HEMOGLOBIN 9.9 g/dL (12.0-16.0); LYMPHOCYTES # (AUTO) 0.1 X10^3/uL (1.3-2.9); LYMPHOCYTES % (AUTO) 10.4 % (21.0-51.0); MEAN CORPUSCULAR HEMOGLOBIN 28.2 pg (27.0-34.0); MEAN CORPUSCULAR HGB CONC 34.8 g/dL (33.0-35.0); MEAN CORPUSCULAR VOLUME 81.1 fL (80.0-100.0); MEAN PLATELET VOLUME 8.8 fL (7.4-11.0); MONOCYTES # (AUTO) 0 x10^3/uL (0.3-0.8); MONOCYTES % (AUTO) 1.5 % (0.0-13.0); NEUTROPHILS # (AUTO) 0.7 x10^3/uL (2.2-4.8); NEUTROPHILS % (AUTO) 87.2 % (42.0-75.0); PLATELET COUNT 48 X10^3/uL (150.0-450.0); RED BLOOD COUNT 3.51 X10^6/uL (3.5-5.4); RED CELL DISTRIBUTION WIDTH 17.1 % (11.6-16.5); SODIUM 135 mmol/L (136-145); TOTAL PROTEIN 5.3 g/dL (6.4-8.2); eGFR BLACK RACES 23 (>60); eGFR NON BLACK RACES 19 (>60)
[2017-04-18 06:28] LABS: WHITE BLOOD COUNT 0.7 X10^3/uL (3.6-10.0)
[2017-04-18] MEDS ORDERED: DOPAMINE IV PREMIX 400 MG 400 MG/250 ML BAG IV PRN (06:28)
[2017-04-18 06:45] LABS: BAND NEUTROPHILS % 18 % (0-10)
[2017-04-18 06:46] LABS: PLATELET MORPHOLOGY COMMENT NORMAL (NORMAL)
[2017-04-18] MEDS: POTASSIUM CHLORIDE IV SCH ×6 (07:03→14:07)
[2017-04-18] MEDS: NS IV SCH ×6 (07:03→14:07)
[2017-04-18 07:09] LABS: BILIRUBIN,URINE 2+ (NEGATIVE); BLOOD/HEMOGLOBIN,URINE 3+ (NEGATIVE); GLUCOSE, URINE 1+ (NEGATIVE); KETONES,URINE NEGATIVE (NEGATIVE); LEUKOCYTE ESTERASE ,URINE 1+ (NEGATIVE); NITRITES,URINE POSITIVE (NEGATIVE); PROTEIN,URINE 3+ (NEGATIVE); UROBILINOGEN,URINE 2+ (NORMAL)
[2017-04-18] MEDS ORDERED: MORPHINE SULFATE PCA 30 MG IVP PRN (07:16)
--- NOTE | 2017-04-18 07:22 | RAD ---
HISTORY: Atrial fibrillation with a rapid ventricular response Study: Chest AP portable Comparison: April 15, 2017 Findings: The heart is within normal limits in size. The antonio are normal. Lungs are free of acute alveolar infi ltrates. No pleural effusions are identified. The bony thorax is unremarkable. IMPRESSION: Lungs remain clear Reported By:
[2017-04-18 07:25] LABS: AMORPHOUS SEDIMENT,UR 2+ /HPF (NEGATIVE); APPEARANCE,URINE HAZY (CLEAR); BACTERIA,URINE TRACE /HPF (NEGATIVE); COLOR,URINE AMBER (YELLOW); RENAL EPITHELIAL CELLS,URINE RARE /HPF (NEGATIVE); SQUAMOUS EPITHELIAL CELL,UR RARE /HPF (NEGATIVE)
[2017-04-18 07:26] LABS: COARSE GRANULAR CASTS,URINE MODERATE /HPF (NEGATIVE); HYALINE CASTS, URINE MODERATE /LPF (NEGATIVE)
[2017-04-18] MEDS ORDERED: NS IV ONE (09:05)
[2017-04-18] MEDS ORDERED: KCL IV ONE (09:05)
[2017-04-18] MEDS ORDERED: ROCEPHIN VIAL 1 GM 1 GM in NS 50 ML IV + SPIKE MINIBAG* 50 ML IV SCH (09:30)
[2017-04-18] MEDS ORDERED: PROTONIX INJ 40 MG VIAL IVP SCH (11:00)
[2017-04-18] MEDS ORDERED: LOVENOX INJ 40 MG SYR SC SCH (11:00)
[2017-04-18] MEDS ORDERED: NORCO 5/325 MG TAB PO PRN (11:44)
--- NOTE | 2017-04-18 12:06 | DR.H&P ---
H&P - History & Physical for Day of: H&P Date: 04/18/17 - Chief Complaint Chief Complaint: RIGHT HIP AND RIGHT THIGH PAIN, WEAKNESS, N/V/D - Allergies Allergies/Adverse Reactions: Allergies Allergy/AdvReac Type Severity Reaction Status Date / Time No Known Drug Allergies Allergy Verified 04/15/17 09:21 - History of Present Illness History of Present Illness: 76 WF ADMITTED FROM ER AFTER PRESENTING WITH INTRACTABLE HIP PAIN. PT WAS PREVIOUSLY TREATED BY DR GREY FOR ORTHO COMPLICATIONS, SEE PREVIOUSLY MRI, VISIT NOTE. ON ER PRESENTATION PT EKG REVEALED AFIB WITH RVR WITH NO PRIOR HISTORY. PT STATES SHE HAS HAD N/V/D PRIOR TO ARRIVAL TO ED. PT. CO WEAKNESS DIFFUSE AND CHEST CONFESTION. ADMIT TO ICU ON CARDIZEM DRIP, BP AND CARDIAC MONITORING, IV HYDRATION. - Past Medical History Past Medical History: Anxiety, Arthritis, COPD - Past Surgical History Surgical History: - Family History Family Medical History: Diabetes Mellitus, Hypertension - Social History Does patient currently use any type of tobacco product: No Have you used tobacco products in the last 12 months: No Type of Tobacco Use: None Alcohol Use: None Drug Use: None - Review of Systems Constitutional: Weakness Eyes: No Symptoms Reported ENT: No Symptoms Reported Respiratory: Cough Cardiovascular: Chest Pain, Palpitations Musculoskeletal: Back Pain, Leg Pain Skin: No Symptoms Reported Neurological: No Symptoms Reported - Physical Exam Vital Signs: Temperature 97.6 F Pulse Rate [Apical] 82 Pulse Rate 173 Respiratory Rate 17 Blood Pressure [Right Arm] 119/57 Blood Pressure [Left Arm] 72/41 Blood Pressure 83/53 O2 Sat by Pulse Oximetry 98 Oriented: Normal Eyes: Normal Ear: Normal Nose: Normal Throat: Normal Respiratory: Rhonchi Throughout Cardiovascular: Tachycardia. negative: Edema : Normal Auscultation: Bowel Sounds: Normal Palpation: Normal Tenderness: Normal Skin: Decreased Turgur Musculoskeletal: Hip, Thigh Psychiatric: Anxiety Speech Pattern: Clear, Appropriate - Assessment/Plan (1) Atrial fibrillation with RVR Status: Acute Plan: ADMIT ICU, CARDIZEM DRIP. RESP THERAPY, BP CONTROL, IV HYDRATION. ELECTROLYTE REPLACEMENT (2) Hypokalemia Status: Acute (3) Leukopenia Qualifiers: Leukopenia type: neutropenia Neutropenia type: unspecified Qualified Code (s): D70.9 - Neutropenia, unspecified Status: Acute (4) Osteoarthritis Qualifiers: Osteoarthritis location: hip Osteoarthritis type: primary Laterality: right Qualified Code(s): M16.11 - Unilateral primary osteoarthritis, right hip Status: Acute (5) UTI (urinary tract infection) Status: Acute Plan: URINE CULTURE, IV ROCEPHIN (6) Nausea, vomiting, and diarrhea Status: Acute Plan: PPI THERAPY, STOOL STUDIES
[2017-04-18 12:41] LABS: FREE T4 (FREE THYROXINE) 2.5 ng/dL (0.76-1.46); TSH (3RD GENERATION) 0.691 uIU/mL (0.358-3.74)
[2017-04-18 12:52] LABS: C-REACTIVE PROTEIN 299.7 mg/L (0-3.0)
[2017-04-18 13:46] LABS: CREATINE KINASE MB 7.3 ng/mL (0-4.0)
[2017-04-18 15:18] LABS: BASOPHILS % (AUTO) 0.4 % (0.2-1.0); EOSINOPHILS % (AUTO) 0.8 % (0.9-2.9); HEMATOCRIT 27.4 % (36.0-47.0); HEMOGLOBIN 9.6 g/dL (12.0-16.0); LYMPHOCYTES # (AUTO) 0.1 X10^3/uL (1.3-2.9); LYMPHOCYTES % (AUTO) 6.6 % (21.0-51.0); MEAN CORPUSCULAR HEMOGLOBIN 28.4 pg (27.0-34.0); MEAN CORPUSCULAR VOLUME 81.1 fL (80.0-100.0); MEAN PLATELET VOLUME 9.3 fL (7.4-11.0); MONOCYTES # (AUTO) 0.1 x10^3/uL (0.3-0.8); MONOCYTES % (AUTO) 4.3 % (0.0-13.0); NEUTROPHILS # (AUTO) 1.5 x10^3/uL (2.2-4.8); NEUTROPHILS % (AUTO) 87.9 % (42.0-75.0); PLATELET COUNT 48 X10^3/uL (150.0-450.0); RED BLOOD COUNT 3.38 X10^6/uL (3.5-5.4); RED CELL DISTRIBUTION WIDTH 17.3 % (11.6-16.5)
[2017-04-18 15:27] LABS: WHITE BLOOD COUNT 1.7 X10^3/uL (3.6-10.0)
--- NOTE | 2017-04-18 15:27 | CT ---
HISTORY: Pain Study: CT abdomen and pelvis without contrast Comparison: 01/18/2017 Technique: Multiple axial images of the abdomen and pelvis were obtained from the lung bases to the pubic symphy sis without the administration of IV contrast. Automated dose control was utilized. Findings: There are hazy subsegmental opacities along the lung bases posteriorly and inferiorly which is more p rominent on the left and was not seen previously . There is a questionable tiny left pleural effusion . The liver is mildly enlarged and more prominent. There is a 1 cm hypodensity in the left lobe later ally which is unchanged. The spleen measures 17 cm in length and is more prominent. No focal lesion i s seen. There are numerous collateral vessels along the hilar region of the liver and spleen which zimmerman ve increased. The gallbladder is mildly distended with no stones or wall thickening and is more promi nent. The bile ducts and pancreas are unremarkable. The adrenals are normal. The kidneys are normal s ize with no hydronephrosis, renal stone, or mass. The ureters are normal caliber. No adenopathy or as cites is seen. There is a Carter catheter in the bladder which is not well distended. The uterus is at rophic. There is no adnexal mass or free fluid. The appendix is not well visualized and there is no p ericecal inflammation. There is moderate joint space narrowing in the right hip which is unchanged. T here are moderate degenerative changes seen throughout the spine with no aggressive osseous lesion. IMPRESSION: Mild hepatomegaly with a 1 cm hypodense lesion in the left lobe which probably represents a cyst and is unchanged. Mild hydrops of the gallbladder with no stones. Moderate splenomegaly which is more prominent with collateral vessels along the upper abdomen suggest mary of associated portal hypertension . Mild bibasilar infiltrates or atelectasis with a tiny left pleural effusion. Suggest followup with rial chest x-rays . No hydronephrosis or renal stones and no urinary obstruction . Carter catheter in the bladder with no pelvic mass or inflammation. Moderate osteoarthritic changes along the right hip which has slightly progressed. Reported By:
[2017-04-18 15:28] LABS: ALANINE AMINOTRANSFERASE 45 Units/L (12-78); ALKALINE PHOSPHATASE 166 Units/L (46-116); ASPARTATE AMINO TRANSFERASE 65 Units/L (15-37); BLOOD UREA NITROGEN 59 mg/dL (7-18); CALCIUM 7.8 mg/dL (8.5-10.1); CARBON DIOXIDE 19.8 mmol/L (21-32); CHLORIDE 106 mmol/L (98-107); COR CA(FOR HYPOALB) 9.4 mg/dL (8.5-10.1); CREATININE 1.81 mg/dL (0.55-1.02); SODIUM 138 mmol/L (136-145); eGFR BLACK RACES 35 (>60); eGFR NON BLACK RACES 29 (>60)
[2017-04-18 15:45] LABS: PLATELET MORPHOLOGY COMMENT NORMAL (NORMAL)
[2017-04-18 15:46] LABS: ANISOCYTOSIS 1+; BURR CELLS PRESENT; OVALOCYTES PRESENT
[2017-04-18 18:17] LABS: ABG BASE EXCESS -5.6 mmol/L (-2.0-2.0)
[2017-04-18 18:18] LABS: ABG ALLEN TEST POS; ABG HCO3 17.5 mmol/L (22-26)
[2017-04-18] MEDS ORDERED: LEVOPHED INJ 8 MG in D5W 250 ML IV 242 ML IV PRN (18:40)
[2017-04-18] MEDS ORDERED: NS + KCL 20 MEQ/L 1,000 ML IV SCH (19:00)
[2017-04-18] MEDS ORDERED: CORDARONE TAB 200 MG PO SCH (19:00)
[2017-04-18] MEDS: MAGNESIUM SULFATE 1 GM/100 mL PREMIX 1 GM/100 ML BAG IV SCH ×2 (20:14→21:13)
[2017-04-18] MEDS ORDERED: MAXIPIME 1 GM IV PREMIX 1 GM/50 ML BAG IV SCH (21:00)
--- NOTE | 2017-04-18 21:16 | RAD ---
HISTORY: Pain Study: Single view chest Comparison: Earlier same day Findings: Single portable view is submitted. There are streaky opacities seen at the left lung base that may re present atelectasis or infiltrate. No pneumothorax. The cardiac and mediastinal contours are within n ormal limits. The soft tissues are unremarkable. IMPRESSION: 1. Streaky opacities at the left lung base that may represent atelectasis or infiltrate. Reported By:
[2017-04-18] MEDS ORDERED: ZOSYN VIAL 3.375 GM 3.375 GM in NS 100 ML IV + SPIKE MINIBAG* 100 ML IV SCH (22:00)
[2017-04-18] MEDS ORDERED: NS 250 ML IV 250 ML IV SCH (23:00)
[2017-04-19 01:37] VITALS: BP 100/52
[2017-04-22 10:37] LABS: ANTI-NUCLEAR ANTIBODY TEST None Detected (None Detected)
== END 2017-04-19 01:30 | disposition short-term general hospital (02) | DRG 309 ==
LOC: ER 04:12 → ICU 07:10
PROVIDERS: ADMIT Internal Medicine; ATTEND Internal Medicine
DX: I48.91 Unspecified atrial fibrillation (principal); D69.6 Thrombocytopenia, unspecified; R79.89 Other specified abnormal findings of blood chemistry; E87.6 Hypokalemia; M16.11 Unilateral primary osteoarthritis, right hip; D70.9 Neutropenia, unspecified; M25.551 Pain in right hip; F41.8 Other specified anxiety disorders; J44.9 Chronic obstructive pulmonary disease, unspecified; N39.0 Urinary tract infection, site not specified; R11.2 Nausea with vomiting, unspecified; R19.7 Diarrhea, unspecified; B96.1 Klebsiella pneumoniae [K. pneumoniae] as the cause of diseases classified elsewhere
CPT/HCPCS: 36415; 36600; 71010; 74176; 80053; 81001; 82550; 82553; 82607; 82728; 82746; 82803; 83540; 83550; 83605; 83735; 84439; 84443; 85025; 85610; 85652; 86140; 86308; 87040; 87086; 87088; 87186; 93005; 93010; 96365; 96367; 96374; 96375; 99284; 99285; A4222; C9113; J0692; J0696; J1265; J1650; J2543; J3480; J3490

== ENCOUNTER 2017-05-09 15:54 | Inpatient (IN) | payer OTHER, MEDICAID ==
--- NOTE | 2017-05-09 18:33 | DR.H&P ---
H&P - History & Physical for Day of: H&P Date: 05/09/17 - Chief Complaint Chief Complaint: WEAKNESS - Allergies Allergies/Adverse Reactions: Allergies Allergy/AdvReac Type Severity Reaction Status Date / Time No Known Drug Allergies Allergy Verified 04/15/17 09:21 - History of Present Illness History of Present Illness: patient is a 77-year-old white female who was a direct admit today from Dr. Pham's office with generalized weakness. Patient has recently returned home from [facility] where she had an extended illness from septicemia. Patient was also newly diagnosed with atrial fib. Family states patient is very weak they are unable to care for her at home. Patient's home is on appropriate care for handicap patient. Patient also has abdominal distention and constipation. Plan to admit for further evaluation, rehabilitation consideration, physical therapy. - Past Medical History Past Medical History: Anxiety, Arthritis, COPD - Past Surgical History Surgical History: - Family History Family Medical History: Diabetes Mellitus, Hypertension - Social History Does patient currently use any type of tobacco product: No Have you used tobacco products in the last 12 months: No Type of Tobacco Use: None Does any household member use tobacco: No Alcohol Use: None Drug Use: None - Review of Systems Constitutional: Weakness Eyes: No Symptoms Reported ENT: No Symptoms Reported Respiratory: No Symptoms Reported Cardiovascular: No Symptoms Reported Gastrointestinal: Nausea Genitourinary: No Symptoms Reported Musculoskeletal: No Symptoms Reported Neurological: Weakness - Physical Exam Vital Signs: Temperature 98.3 F Pulse Rate [Right Brachial] 84 Respiratory Rate 20 Blood Pressure [Right Arm] 175/70 Blood Pressure [Left Arm] 100/52 Blood Pressure 100/52 O2 Sat by Pulse Oximetry 97 Oriented: Person Eyes: Normal Ear: Normal Nose: Normal Throat: Dry Respiratory: RLL Diminished, LLL Diminished Auscultation: Bowel Sounds: Decreased Tenderness: RUQ, Epigastric Skin: Decreased Turgur Musculoskeletal: Motor Deficit Psychiatric: Depression Speech Pattern: Clear, Appropriate - Assessment/Plan (1) Generalized weakness Status: Acute Plan: ADMIT, CBC CMP UA. CHEST XRAY, EKG, ON ADMISSION. RESUME HOME MEDS. KUB FOR CONSTIPATION COMPLAINTS, PT CONSULT. CASE MANAGEMENT CONSULT FOR INTERMEDIATE PLACEMENT (2) Atrial fibrillation Status: Acute (3) Degenerative arthritis of hip Status: Acute
[2017-05-09 19:03] LABS: EOSINOPHILS # (AUTO) 0.1 x10^3/uL (0.0-0.2); EOSINOPHILS % (AUTO) 3.6 % (0.9-2.9); HEMATOCRIT 21.8 % (36.0-47.0); HEMOGLOBIN 7.8 g/dL (12.0-16.0); LYMPHOCYTES # (AUTO) 0.6 X10^3/uL (1.3-2.9); LYMPHOCYTES % (AUTO) 16.3 % (21.0-51.0); MEAN CORPUSCULAR HEMOGLOBIN 27.9 pg (27.0-34.0); MEAN CORPUSCULAR HGB CONC 35.9 g/dL (33.0-35.0); MEAN CORPUSCULAR VOLUME 77.9 fL (80.0-100.0); MEAN PLATELET VOLUME 6.3 fL (7.4-11.0); MONOCYTES # (AUTO) 0.3 x10^3/uL (0.3-0.8); MONOCYTES % (AUTO) 9.2 % (0.0-13.0); NEUTROPHILS # (AUTO) 2.6 x10^3/uL (2.2-4.8); NEUTROPHILS % (AUTO) 69.9 % (42.0-75.0); PLATELET COUNT 177 X10^3/uL (150.0-450.0); WHITE BLOOD COUNT 3.7 X10^3/uL (3.6-10.0)
[2017-05-09 19:10] LABS: ALANINE AMINOTRANSFERASE 20 Units/L (12-78); ALBUMIN 2.1 g/dL (3.4-5.0); ALKALINE PHOSPHATASE 182 Units/L (46-116); ASPARTATE AMINO TRANSFERASE 20 Units/L (15-37); BLOOD UREA NITROGEN 63 mg/dL (7-18); CARBON DIOXIDE 25.7 mmol/L (21-32); CHLORIDE 98 mmol/L (98-107); COR CA(FOR HYPOALB) 10.5 mg/dL (8.5-10.1); CREATININE 4.09 mg/dL (0.55-1.02); SODIUM 132 mmol/L (136-145); TOTAL PROTEIN 6.3 g/dL (6.4-8.2); eGFR BLACK RACES 14 (>60); eGFR NON BLACK RACES 11 (>60)
[2017-05-09 19:17] LABS: HYPOCHROMASIA 1+; MICROCYTOSIS 1+; PLATELET MORPHOLOGY COMMENT NORMAL (NORMAL)
--- NOTE | 2017-05-09 21:42 | RAD ---
HISTORY: Abdominal distention. Study: Portable chest. Comparison: Chest x-ray dated April 18, 2017. Findings: The trachea is midline. The cardiac silhouette is at the upper limits of normal. Blunting of the le ft costophrenic angle likely representing a small pleural effusion. Associated atelectasis versus ear ly infiltrate. The right lung is clear. No obvious pneumothorax. The bony thorax is unremarkable. T here is a catheter within the right upper quadrant. IMPRESSION: Small left pleural effusion with associated atelectasis versus early infiltrate. Reported By:
--- NOTE | 2017-05-09 23:23 | RAD ---
EXAM: Abdomen x-ray INDICATION: Abdominal distention COMPARISION: No priors TECHNIQUE: AP view, single view FINDINGS: There is a pigtail catheter in the right upper quadrant. The bowel loops are nonobstructed. No abnorm al mass or calcification is identified. The regional skeleton is intact. IMPRESSION: Negative single view abdominal x-ray examination Reported By:
[2017-05-10 05:30] LABS: BASOPHILS % (AUTO) 0.8 % (0.2-1.0); EOSINOPHILS # (AUTO) 0.2 x10^3/uL (0.0-0.2); EOSINOPHILS % (AUTO) 4.1 % (0.9-2.9); HEMATOCRIT 20.1 % (36.0-47.0); HEMOGLOBIN 7.3 g/dL (12.0-16.0); LYMPHOCYTES # (AUTO) 0.7 X10^3/uL (1.3-2.9); LYMPHOCYTES % (AUTO) 19.2 % (21.0-51.0); MEAN CORPUSCULAR HEMOGLOBIN 28.1 pg (27.0-34.0); MEAN CORPUSCULAR HGB CONC 36.2 g/dL (33.0-35.0); MEAN CORPUSCULAR VOLUME 77.6 fL (80.0-100.0); MEAN PLATELET VOLUME 6.4 fL (7.4-11.0); MONOCYTES # (AUTO) 0.4 x10^3/uL (0.3-0.8); MONOCYTES % (AUTO) 10.9 % (0.0-13.0); NEUTROPHILS # (AUTO) 2.5 x10^3/uL (2.2-4.8); PLATELET COUNT 156 X10^3/uL (150.0-450.0); RED CELL DISTRIBUTION WIDTH 14.6 % (11.6-16.5); WHITE BLOOD COUNT 3.8 X10^3/uL (3.6-10.0)
[2017-05-10 05:34] LABS: ALANINE AMINOTRANSFERASE 18 Units/L (12-78); ALBUMIN 1.9 g/dL (3.4-5.0); ALKALINE PHOSPHATASE 165 Units/L (46-116); ASPARTATE AMINO TRANSFERASE 19 Units/L (15-37); BLOOD UREA NITROGEN 66 mg/dL (7-18); CALCIUM 8.8 mg/dL (8.5-10.1); CARBON DIOXIDE 25.4 mmol/L (21-32); CHLORIDE 99 mmol/L (98-107); COR CA(FOR HYPOALB) 10.5 mg/dL (8.5-10.1); SODIUM 132 mmol/L (136-145); TOTAL PROTEIN 5.6 g/dL (6.4-8.2); eGFR BLACK RACES 13 (>60); eGFR NON BLACK RACES 10 (>60)
[2017-05-10 05:56] LABS: PLATELET MORPHOLOGY COMMENT NORMAL (NORMAL)
[2017-05-10 05:57] LABS: HYPOCHROMASIA 1+; MICROCYTOSIS 1+; OVALOCYTES NOTED
[2017-05-10 07:04] LABS: BILIRUBIN,URINE NEGATIVE (NEGATIVE); BLOOD/HEMOGLOBIN,URINE 5+ (NEGATIVE); GLUCOSE, URINE NEGATIVE (NEGATIVE); KETONES,URINE NEGATIVE (NEGATIVE); LEUKOCYTE ESTERASE ,URINE 2+ (NEGATIVE); NITRITES,URINE NEGATIVE (NEGATIVE); PROTEIN,URINE 2+ (NEGATIVE); UROBILINOGEN,URINE NORMAL (NORMAL)
[2017-05-10 07:19] LABS: APPEARANCE,URINE CLEAR (CLEAR); BACTERIA,URINE TRACE /HPF (NEGATIVE); COLOR,URINE AMBER (YELLOW); SQUAMOUS EPITHELIAL CELL,UR FEW /HPF (NEGATIVE); YEAST,URINE FEW /HPF (NEGATIVE)
[2017-05-10] MEDS ORDERED: CORDARONE TAB 200 MG PO SCH (09:00)
[2017-05-10] MEDS: ROCEPHIN VIAL 1 GM 1 GM in NS 50 ML IV + SPIKE MINIBAG* 50 ML IV SCH ×2 (09:17→09:32)
[2017-05-10] MEDS: CORDARONE TAB 200 MG PO SCH (09:24)
[2017-05-10] MEDS: NS 1000 ML 1,000 ML IV SCH ×2 (09:24→21:59)
[2017-05-10] MEDS: RESTORIL CAP 15 MG PO PRN (21:58)
[2017-05-11 05:01] LABS: BASOPHILS % (AUTO) 0.8 % (0.2-1.0); EOSINOPHILS # (AUTO) 0.1 x10^3/uL (0.0-0.2); EOSINOPHILS % (AUTO) 2.8 % (0.9-2.9); LYMPHOCYTES # (AUTO) 0.6 X10^3/uL (1.3-2.9); LYMPHOCYTES % (AUTO) 15.5 % (21.0-51.0); MEAN CORPUSCULAR HEMOGLOBIN 27.7 pg (27.0-34.0); MEAN CORPUSCULAR HGB CONC 35.5 g/dL (33.0-35.0); MEAN PLATELET VOLUME 6.5 fL (7.4-11.0); MONOCYTES # (AUTO) 0.4 x10^3/uL (0.3-0.8); MONOCYTES % (AUTO) 10.7 % (0.0-13.0); NEUTROPHILS # (AUTO) 2.8 x10^3/uL (2.2-4.8); NEUTROPHILS % (AUTO) 70.2 % (42.0-75.0); PLATELET COUNT 157 X10^3/uL (150.0-450.0); RED BLOOD COUNT 2.48 X10^6/uL (3.5-5.4); RED CELL DISTRIBUTION WIDTH 14.8 % (11.6-16.5)
[2017-05-11 05:03] LABS: ALANINE AMINOTRANSFERASE 15 Units/L (12-78); ALBUMIN 1.8 g/dL (3.4-5.0); ALKALINE PHOSPHATASE 160 Units/L (46-116); ASPARTATE AMINO TRANSFERASE 15 Units/L (15-37); BLOOD UREA NITROGEN 57 mg/dL (7-18); CALCIUM 8.4 mg/dL (8.5-10.1); CARBON DIOXIDE 24.1 mmol/L (21-32); CHLORIDE 101 mmol/L (98-107); COR CA(FOR HYPOALB) 10.2 mg/dL (8.5-10.1); CREATININE 3.81 mg/dL (0.55-1.02); SODIUM 132 mmol/L (136-145); TOTAL PROTEIN 5.4 g/dL (6.4-8.2); eGFR BLACK RACES 15 (>60); eGFR NON BLACK RACES 12 (>60)
[2017-05-11 05:24] LABS: HEMATOCRIT 19.3 % (36.0-47.0); HEMOGLOBIN 6.9 g/dL (12.0-16.0)
[2017-05-11] MEDS ORDERED: NS 500 ML IV 500 ML IV ONE (08:36)
[2017-05-11] MEDS: CORDARONE TAB 200 MG PO SCH (10:03)
[2017-05-11] MEDS: NS 1000 ML 1,000 ML IV SCH ×2 (10:04→12:37)
[2017-05-11] MEDS: ROCEPHIN VIAL 1 GM 1 GM in NS 50 ML IV + SPIKE MINIBAG* 50 ML IV SCH (10:04)
[2017-05-11] MEDS ORDERED: TYLENOL 325 MG TAB PO ONE ×2 (10:26→12:48)
[2017-05-11] MEDS ORDERED: BENADRYL INJ 50 MG VIAL IVP ONE (10:27)
[2017-05-11] MEDS ORDERED: NYSTATIN POWDER ONE (10:38)
[2017-05-11] MEDS ORDERED: BUTT CREAM (COMPOUND) ONE (10:50)
[2017-05-11 11:17] LABS: BILIRUBIN,URINE NEGATIVE (NEGATIVE); BLOOD/HEMOGLOBIN,URINE 5+ (NEGATIVE); GLUCOSE, URINE NEGATIVE (NEGATIVE); KETONES,URINE NEGATIVE (NEGATIVE); LEUKOCYTE ESTERASE ,URINE 1+ (NEGATIVE); NITRITES,URINE NEGATIVE (NEGATIVE); PROTEIN,URINE 2+ (NEGATIVE); UROBILINOGEN,URINE NORMAL (NORMAL)
[2017-05-11 11:40] LABS: APPEARANCE,URINE HAZY (CLEAR); BACTERIA,URINE 1+ /HPF (NEGATIVE); COLOR,URINE YELLOW (YELLOW); RBC,URINE 15-25 /HPF (NEGATIVE); SQUAMOUS EPITHELIAL CELL,UR RARE /HPF (NEGATIVE)
[2017-05-11] MEDS ORDERED: BENADRYL INJ 50 MG VIAL ONE (12:48)
[2017-05-11] MEDS: BUTT CREAM (COMPOUND) TOP SCH (14:26)
[2017-05-11] MEDS: NORVASC TAB 5 MG PO SCH (14:43)
[2017-05-11] MEDS: NYSTATIN POWDER TOP SCH ×2 (14:43→23:00)
[2017-05-11] MEDS: COLACE CAP 100 MG PO SCH (22:48)
[2017-05-12] MEDS: BUTT CREAM (COMPOUND) TOP SCH ×4 (00:48→22:14)
[2017-05-12] MEDS: NS 1000 ML 1,000 ML IV SCH ×2 (02:22→17:27)
[2017-05-12 05:19] LABS: EOSINOPHILS # (AUTO) 0.1 x10^3/uL (0.0-0.2); EOSINOPHILS % (AUTO) 2.1 % (0.9-2.9); HEMATOCRIT 24.9 % (36.0-47.0); LYMPHOCYTES # (AUTO) 0.7 X10^3/uL (1.3-2.9); LYMPHOCYTES % (AUTO) 18.2 % (21.0-51.0); MEAN CORPUSCULAR HEMOGLOBIN 28.1 pg (27.0-34.0); MEAN PLATELET VOLUME 6.3 fL (7.4-11.0); MONOCYTES # (AUTO) 0.4 x10^3/uL (0.3-0.8); MONOCYTES % (AUTO) 10.8 % (0.0-13.0); NEUTROPHILS # (AUTO) 2.6 x10^3/uL (2.2-4.8); NEUTROPHILS % (AUTO) 67.9 % (42.0-75.0); PLATELET COUNT 164 X10^3/uL (150.0-450.0); RED BLOOD COUNT 3.19 X10^6/uL (3.5-5.4); RED CELL DISTRIBUTION WIDTH 14.3 % (11.6-16.5); WHITE BLOOD COUNT 3.8 X10^3/uL (3.6-10.0)
[2017-05-12 05:39] LABS: ALANINE AMINOTRANSFERASE 15 Units/L (12-78); ALBUMIN 1.8 g/dL (3.4-5.0); ALKALINE PHOSPHATASE 157 Units/L (46-116); ASPARTATE AMINO TRANSFERASE 15 Units/L (15-37); BLOOD UREA NITROGEN 40 mg/dL (7-18); CALCIUM 8.1 mg/dL (8.5-10.1); CARBON DIOXIDE 23.8 mmol/L (21-32); CHLORIDE 105 mmol/L (98-107); COR CA(FOR HYPOALB) 9.9 mg/dL (8.5-10.1); CREATININE 2.55 mg/dL (0.55-1.02); SODIUM 138 mmol/L (136-145); TOTAL PROTEIN 5.3 g/dL (6.4-8.2); eGFR BLACK RACES 24 (>60); eGFR NON BLACK RACES 19 (>60)
[2017-05-12] MEDS ORDERED: NORCO 5/325 MG TAB ONE (08:41)
[2017-05-12] MEDS: CORDARONE TAB 200 MG PO SCH (08:42)
[2017-05-12] MEDS: NORVASC TAB 5 MG PO SCH (08:43)
[2017-05-12] MEDS: NORCO 5/325 MG TAB PO PRN ×3 (08:43→19:15)
[2017-05-12] MEDS: ROCEPHIN VIAL 1 GM 1 GM in NS 50 ML IV + SPIKE MINIBAG* 50 ML IV SCH (08:44)
[2017-05-12] MEDS ORDERED: CORDARONE TAB 200 MG PO SCH (09:00)
[2017-05-12] MEDS: NYSTATIN POWDER TOP SCH ×2 (09:30→21:33)
[2017-05-12] MEDS ORDERED: CANDIDA ALBICANS SKIN TEST ID ONE (12:28)
[2017-05-12] MEDS: LASIX IVP SCH ×2 (14:38→21:33)
[2017-05-12] MEDS: COLACE CAP 100 MG PO SCH (21:32)
[2017-05-13] MEDS: BUTT CREAM (COMPOUND) TOP SCH ×3 (06:07→14:30)
[2017-05-13 06:08] LABS: BASOPHILS % (AUTO) 1.2 % (0.2-1.0); EOSINOPHILS # (AUTO) 0.1 x10^3/uL (0.0-0.2); EOSINOPHILS % (AUTO) 3.3 % (0.9-2.9); HEMATOCRIT 25.2 % (36.0-47.0); HEMOGLOBIN 9.3 g/dL (12.0-16.0); LYMPHOCYTES # (AUTO) 0.8 X10^3/uL (1.3-2.9); LYMPHOCYTES % (AUTO) 23.3 % (21.0-51.0); MEAN CORPUSCULAR HEMOGLOBIN 28.5 pg (27.0-34.0); MEAN CORPUSCULAR HGB CONC 36.9 g/dL (33.0-35.0); MEAN CORPUSCULAR VOLUME 77.1 fL (80.0-100.0); MEAN PLATELET VOLUME 6.4 fL (7.4-11.0); MONOCYTES # (AUTO) 0.3 x10^3/uL (0.3-0.8); MONOCYTES % (AUTO) 10.2 % (0.0-13.0); NEUTROPHILS # (AUTO) 2.1 x10^3/uL (2.2-4.8); PLATELET COUNT 183 X10^3/uL (150.0-450.0); RED BLOOD COUNT 3.27 X10^6/uL (3.5-5.4); RED CELL DISTRIBUTION WIDTH 14.5 % (11.6-16.5); WHITE BLOOD COUNT 3.4 X10^3/uL (3.6-10.0)
[2017-05-13] MEDS: NS 1000 ML 1,000 ML IV SCH ×3 (06:16→21:52)
[2017-05-13 06:17] LABS: ALBUMIN 2.1 g/dL (3.4-5.0); CALCIUM 8.3 mg/dL (8.5-10.1); CARBON DIOXIDE 28.7 mmol/L (21-32); COR CA(FOR HYPOALB) 9.8 mg/dL (8.5-10.1); CREATININE 1.25 mg/dL (0.55-1.02); TOTAL PROTEIN 5.9 g/dL (6.4-8.2)
[2017-05-13] MEDS ORDERED: K-DUR TAB 20 MEQ PO PRN (06:58)
[2017-05-13] MEDS ORDERED: POTASSIUM CHLORIDE LIQ 20 MEQ UDC PO PRN (06:58)
[2017-05-13] MEDS ORDERED: K-RIDER 10 MEQ/NS 100 ML 10 MEQ/100 ML BAG IV PRN (06:58)
[2017-05-13] MEDS: NORVASC TAB 5 MG PO SCH (09:54)
[2017-05-13] MEDS: CORDARONE TAB 200 MG PO SCH (09:54)
[2017-05-13] MEDS: NYSTATIN POWDER TOP SCH ×2 (09:55→22:45)
[2017-05-13] MEDS: ROCEPHIN VIAL 1 GM 1 GM in NS 50 ML IV + SPIKE MINIBAG* 50 ML IV SCH (09:55)
[2017-05-13] MEDS ORDERED: MAGNESIUM SULFATE 1 GM/100 mL PREMIX 1 GM/100 ML BAG IV SCH ×2 (10:00→11:00)
[2017-05-13] MEDS ORDERED: MAGNESIUM SULFATE 1 GM/100 mL PREMIX 2 GM/200 ML BAG IV ONE (10:15)
[2017-05-13] MEDS: MAGNESIUM SULFATE 1 GM/100 mL PREMIX 1 GM/100 ML BAG IV SCH ×2 (10:30→11:30)
[2017-05-13] MEDS: COLACE CAP 100 MG PO SCH (20:04)
[2017-05-13] MEDS: RESTORIL CAP 15 MG PO PRN (20:04)
[2017-05-14] MEDS: BUTT CREAM (COMPOUND) TOP SCH ×3 (05:14→21:08)
[2017-05-14 06:09] LABS: BASOPHILS % (AUTO) 0.9 % (0.2-1.0); EOSINOPHILS # (AUTO) 0.1 x10^3/uL (0.0-0.2); EOSINOPHILS % (AUTO) 1.7 % (0.9-2.9); HEMATOCRIT 24.5 % (36.0-47.0); LYMPHOCYTES % (AUTO) 25.6 % (21.0-51.0); MEAN CORPUSCULAR HEMOGLOBIN 28.2 pg (27.0-34.0); MEAN CORPUSCULAR HGB CONC 36.5 g/dL (33.0-35.0); MEAN CORPUSCULAR VOLUME 77.3 fL (80.0-100.0); MEAN PLATELET VOLUME 6.3 fL (7.4-11.0); MONOCYTES # (AUTO) 0.4 x10^3/uL (0.3-0.8); MONOCYTES % (AUTO) 9.9 % (0.0-13.0); NEUTROPHILS # (AUTO) 2.3 x10^3/uL (2.2-4.8); NEUTROPHILS % (AUTO) 61.9 % (42.0-75.0); PLATELET COUNT 206 X10^3/uL (150.0-450.0); RED BLOOD COUNT 3.17 X10^6/uL (3.5-5.4); RED CELL DISTRIBUTION WIDTH 14.9 % (11.6-16.5); WHITE BLOOD COUNT 3.8 X10^3/uL (3.6-10.0)
[2017-05-14 06:40] LABS: ALANINE AMINOTRANSFERASE 14 Units/L (12-78); ALBUMIN 2.1 g/dL (3.4-5.0); ALKALINE PHOSPHATASE 166 Units/L (46-116); ASPARTATE AMINO TRANSFERASE 18 Units/L (15-37); BLOOD UREA NITROGEN 9 mg/dL (7-18); CALCIUM 8.7 mg/dL (8.5-10.1); CARBON DIOXIDE 28.4 mmol/L (21-32); CHLORIDE 102 mmol/L (98-107); COR CA(FOR HYPOALB) 10.2 mg/dL (8.5-10.1); CREATININE 0.73 mg/dL (0.55-1.02); MAGNESIUM 1.7 mg/dL (1.7-2.9); TOTAL PROTEIN 5.8 g/dL (6.4-8.2); eGFR BLACK RACES > 60 (>60); eGFR NON BLACK RACES > 60 (>60)
[2017-05-14 07:14] LABS: SODIUM 138 mmol/L (136-145)
[2017-05-14] MEDS: CORDARONE TAB 200 MG PO SCH (08:12)
[2017-05-14] MEDS: NORVASC TAB 5 MG PO SCH (08:12)
[2017-05-14] MEDS: ROCEPHIN VIAL 1 GM 1 GM in NS 50 ML IV + SPIKE MINIBAG* 50 ML IV SCH (08:13)
[2017-05-14] MEDS: NS 1000 ML 1,000 ML IV SCH ×2 (08:13→11:09)
[2017-05-14] MEDS: NYSTATIN POWDER TOP SCH ×2 (08:13→20:06)
[2017-05-14] MEDS: K-LYTE EFFERVESCENT PO SCH ×4 (08:58→21:08)
[2017-05-14] MEDS: COZAAR PO SCH (09:28)
[2017-05-14] MEDS: COLACE CAP 100 MG PO SCH (20:03)
[2017-05-14] MEDS: RESTORIL CAP 15 MG PO PRN (20:03)
[2017-05-15 04:29] LABS: EOSINOPHILS # (AUTO) 0.1 x10^3/uL (0.0-0.2); EOSINOPHILS % (AUTO) 1.4 % (0.9-2.9); HEMATOCRIT 25.2 % (36.0-47.0); HEMOGLOBIN 9.1 g/dL (12.0-16.0); LYMPHOCYTES # (AUTO) 0.9 X10^3/uL (1.3-2.9); LYMPHOCYTES % (AUTO) 22.6 % (21.0-51.0); MEAN CORPUSCULAR HEMOGLOBIN 28.1 pg (27.0-34.0); MEAN CORPUSCULAR HGB CONC 35.9 g/dL (33.0-35.0); MEAN CORPUSCULAR VOLUME 78.2 fL (80.0-100.0); MEAN PLATELET VOLUME 6.2 fL (7.4-11.0); MONOCYTES # (AUTO) 0.4 x10^3/uL (0.3-0.8); MONOCYTES % (AUTO) 9.5 % (0.0-13.0); NEUTROPHILS # (AUTO) 2.7 x10^3/uL (2.2-4.8); NEUTROPHILS % (AUTO) 65.5 % (42.0-75.0); PLATELET COUNT 197 X10^3/uL (150.0-450.0); RED BLOOD COUNT 3.23 X10^6/uL (3.5-5.4); RED CELL DISTRIBUTION WIDTH 14.6 % (11.6-16.5); WHITE BLOOD COUNT 4.1 X10^3/uL (3.6-10.0)
[2017-05-15 04:50] LABS: ALANINE AMINOTRANSFERASE 17 Units/L (12-78); ALBUMIN 2.1 g/dL (3.4-5.0); ALKALINE PHOSPHATASE 185 Units/L (46-116); ASPARTATE AMINO TRANSFERASE 18 Units/L (15-37); BLOOD UREA NITROGEN 8 mg/dL (7-18); CALCIUM 8.6 mg/dL (8.5-10.1); CARBON DIOXIDE 28.1 mmol/L (21-32); CHLORIDE 102 mmol/L (98-107); COR CA(FOR HYPOALB) 10.1 mg/dL (8.5-10.1); CREATININE 0.66 mg/dL (0.55-1.02); MAGNESIUM 1.3 mg/dL (1.7-2.9); SODIUM 140 mmol/L (136-145); TOTAL PROTEIN 5.8 g/dL (6.4-8.2); eGFR BLACK RACES > 60 (>60); eGFR NON BLACK RACES > 60 (>60)
[2017-05-15] MEDS: K-LYTE EFFERVESCENT PO PRN (05:13)
[2017-05-15] MEDS: BUTT CREAM (COMPOUND) TOP SCH ×3 (05:20→14:54)
[2017-05-15] MEDS: NS 1000 ML 1,000 ML IV SCH (05:44)
[2017-05-15] MEDS: CORDARONE TAB 200 MG PO SCH (09:01)
[2017-05-15] MEDS: COZAAR PO SCH (09:02)
[2017-05-15] MEDS: NORVASC TAB 5 MG PO SCH (09:02)
[2017-05-15] MEDS: ROCEPHIN VIAL 1 GM 1 GM in NS 50 ML IV + SPIKE MINIBAG* 50 ML IV SCH (09:02)
[2017-05-15] MEDS: K-LYTE EFFERVESCENT PO SCH (09:02)
[2017-05-15] MEDS: NYSTATIN POWDER TOP SCH (09:07)
[2017-05-15] MEDS: MAGNESIUM SULFATE 1 GM/100 mL PREMIX 1 GM/100 ML BAG IV SCH ×2 (10:19→12:13)
[2017-05-15] MEDS: NORCO 5/325 MG TAB PO PRN (12:12)
[2017-05-15] MEDS: COLACE CAP 100 MG PO SCH (20:39)
[2017-05-15] MEDS: RESTORIL CAP 15 MG PO PRN (20:39)
[2017-05-16] MEDS: NYSTATIN POWDER TOP SCH ×2 (01:33→10:44)
[2017-05-16] MEDS: BUTT CREAM (COMPOUND) TOP SCH ×3 (01:34→15:19)
[2017-05-16 05:35] LABS: BASOPHILS % (AUTO) 0.9 % (0.2-1.0); EOSINOPHILS # (AUTO) 0.1 x10^3/uL (0.0-0.2); EOSINOPHILS % (AUTO) 1.8 % (0.9-2.9); HEMATOCRIT 24.7 % (36.0-47.0); HEMOGLOBIN 8.8 g/dL (12.0-16.0); LYMPHOCYTES % (AUTO) 23.2 % (21.0-51.0); MEAN CORPUSCULAR HEMOGLOBIN 28.3 pg (27.0-34.0); MEAN CORPUSCULAR HGB CONC 35.7 g/dL (33.0-35.0); MEAN CORPUSCULAR VOLUME 79.1 fL (80.0-100.0); MONOCYTES # (AUTO) 0.4 x10^3/uL (0.3-0.8); MONOCYTES % (AUTO) 9.5 % (0.0-13.0); NEUTROPHILS # (AUTO) 2.9 x10^3/uL (2.2-4.8); NEUTROPHILS % (AUTO) 64.6 % (42.0-75.0); PLATELET COUNT 199 X10^3/uL (150.0-450.0); RED BLOOD COUNT 3.13 X10^6/uL (3.5-5.4); RED CELL DISTRIBUTION WIDTH 15.1 % (11.6-16.5); WHITE BLOOD COUNT 4.5 X10^3/uL (3.6-10.0)
[2017-05-16 05:38] LABS: ALANINE AMINOTRANSFERASE 22 Units/L (12-78); ALKALINE PHOSPHATASE 206 Units/L (46-116); ASPARTATE AMINO TRANSFERASE 23 Units/L (15-37); BLOOD UREA NITROGEN 8 mg/dL (7-18); CALCIUM 8.7 mg/dL (8.5-10.1); CARBON DIOXIDE 27.7 mmol/L (21-32); CHLORIDE 101 mmol/L (98-107); COR CA(FOR HYPOALB) 10.3 mg/dL (8.5-10.1); CREATININE 0.74 mg/dL (0.55-1.02); MAGNESIUM 1.7 mg/dL (1.7-2.9); SODIUM 138 mmol/L (136-145); TOTAL PROTEIN 5.9 g/dL (6.4-8.2); eGFR BLACK RACES > 60 (>60); eGFR NON BLACK RACES > 60 (>60)
[2017-05-16] MEDS: K-LYTE EFFERVESCENT PO PRN (06:02)
[2017-05-16] MEDS ORDERED: LASIX IVP ONE (08:38)
[2017-05-16] MEDS: NORVASC TAB 5 MG PO SCH (09:43)
[2017-05-16] MEDS: COZAAR PO SCH (09:43)
[2017-05-16] MEDS: CORDARONE TAB 200 MG PO SCH (09:43)
[2017-05-16] MEDS: ROCEPHIN VIAL 1 GM 1 GM in NS 50 ML IV + SPIKE MINIBAG* 50 ML IV SCH (09:44)
[2017-05-16] MEDS: NORCO 5/325 MG TAB PO PRN (12:37)
[2017-05-16 13:35] VITALS: BP 129/62
== END 2017-05-16 14:25 | disposition home or self-care (01) | DRG 948 ==
LOC: MED/SURG 15:54 → OBSVTOIN 05-11 09:00
PROVIDERS: ADMIT Internal Medicine; ATTEND Internal Medicine
PROC: 30233N1 Transfusion of Nonautologous Red Blood Cells into Peripheral Vein, Percutaneous Approach (ICD-10-PCS; principal; 2017-05-11)
PROC: 30233N1 Transfusion of Nonautologous Red Blood Cells into Peripheral Vein, Percutaneous Approach (ICD-10-PCS; 2017-05-11)
DX: R53.1 Weakness (principal); N39.0 Urinary tract infection, site not specified; K82.8 Other specified diseases of gallbladder; Z86.19 Personal history of other infectious and parasitic diseases; I48.91 Unspecified atrial fibrillation; K59.00 Constipation, unspecified; J44.9 Chronic obstructive pulmonary disease, unspecified; F41.9 Anxiety disorder, unspecified; E83.42 Hypomagnesemia; E87.6 Hypokalemia; I10 Essential (primary) hypertension; M19.90 Unspecified osteoarthritis, unspecified site; D64.89 Other specified anemias
CPT/HCPCS: 36415; 36430; 71010; 74000; 80053; 81001; 82607; 82728; 82746; 83540; 83735; 84132; 84466; 85025; 86850; 86900; 86901; 86922; 87086; 93005; 93010; 94640; 94760; 97535; A4222; P9016; G0378; J0696; J1200; J1940